=== PATIENT | female | born 1975 | race Caucasian/White ===

== ENCOUNTER 2020-06-13 13:48 | Emergency (ER) | payer BC, SELFPAY ==
--- NOTE | ~2020-06-13 | XR_ITS ---
EXAMINATION: XR foot RT min 3V EXAM DATE: 06/13/2020 14:45 INDICATION: Heel pain/Medial Foot Pain, runner, symptoms one month. No known injury. TECHNIQUE: Right foot dorsoplantar, lateral and oblique projections obtained and reviewed. There is no prior study for comparison. FINDINGS: Right metatarsal bones unremarkable. No periosteal reaction or band of sclerosis to sugges t subacute stress fracture. There are no acute fractures or dislocations identified. There is no subcutaneous gas. The soft tissue is unremarkable. There are no radiopaque foreign bodies. IMPRESSION: 1. Unremarkable right foot exam. Reviewed, dictated and finalized at location A.
[2020-06-13 14:15] VITALS: BP 113/80; PULSE 62; RESP 20; TEMP 37.1; O2SAT 98
--- NOTE | 2020-06-13 14:40 | ED.LOWEXIN ---
HPI - Extremity Injury (Lower) General Chief Complaint: Extremity Injury, Lower Stated Complaint: pain in right foot Time Seen by Provider: 06/13/20 14:55 Source: patient Mode of arrival: ambulatory Limitations: no limitations History of Present Illness HPI Narrative: 45-year-old woman comes in today complaining of right heel pain that has been present off and on for months. For the last month the pain has been constant and keeping her up at nighttime. She states that pain is worse 1st thing in the morning and that when she gets up after sitting she experiences significant pain. Denies any numbness or tingling in her toes but states that sometimes her heel feels numb. She has had no discrete injury. She runs approximately 3 miles per day. MD complaint: foot injury Onset (ago): month(s) (1) Injury: Right: foot Severity: moderate Relieving factors: rest Exacerbating factors: weight bearing and palpation Context: running Associated symptoms: numbness and able to partially bear weight Related Data Home Medications Medication Instructions Recorded Confirmed escitalopram oxalate 15 mg PO DAILY 06/13/20 06/13/20 Allergies Allergy/AdvReac Type Severity Reaction Status Date / Time No Known Allergies Allergy Verified 03/18/19 13:06 Review of Systems Musculoskeletal: Musculoskeletal: Denies arthralgias, Denies joint swelling and Denies muscle cramps Integumentary/Breasts: Skin/Breast: Denies pruritus, Denies rash and Denies skin ulcer Neurologic: Denies focal weakness and Reports numbness Hematologic/Lymphatic: Hematologic/Lymphatic: Denies easy bleeding and Denies easy bruising PMFSH Social History Social History Smoking status: Smoker, status unknown Alcohol intake: current Gender identity (if verbalized by the patient): Female Exam Const: General: healthy appearing and no acute distress Orientation/consciousness: patient oriented x3 Limitations: no limitations Eyes: Conjunctivae: conjunctivae normal Pupils: Equal, round and reactive pupils present EOM: EOMs intact bilaterally Skin: General skin exam: normal color, no jaundice and no pallor Rashes: no rashes Wounds: no wounds Neuro: General: moves all extremities and no focal motor deficits Other: Antalgic gait Extrem: General: normal to inspection and no clubbing, cyanosis or edema Other: Tenderness palpation of the anterior portion of the plantar calcaneus. There is no swelling or masses and the overlying skin has no erythema or induration distal neurovascular exam is intact and she has normal range of motion. Psych: Appearance: grossly normal and well kempt Mental Status: mental status grossly normal Affect: normal affect Attitude: cooperative Thought content: Yes Normal thought content present Course Vital Signs Vital signs: Vital Signs Temperature 37.1 C 06/13/20 14:15 Pulse Rate 62 06/13/20 14:15 Respiratory Rate 20 06/13/20 14:15 Blood Pressure 113/80 06/13/20 14:15 Pulse Oximetry 98 06/13/20 14:15 Temperature 37.1 C 06/13/20 14:15 Pulse Rate 62 06/13/20 14:15 Respiratory Rate 20 06/13/20 14:15 Blood Pressure 113/80 06/13/20 14:15 Pulse Oximetry 98 06/13/20 14:15 Discharge Plan Discharge Clinical Impression: Heel pain Qualifiers: Laterality: right Qualified Code(s): M79.671 - Pain in right foot Patient Disposition: Home, Self-Care Condition: Stable Instructions: Plantar Fasciitis (ED) Additional Instructions: Ice after walking. Continue ibuprofen. Follow-up with your doctor. See attached sheets and exercises. Prescriptions: New hydrocodone-acetaminophen 5-325 mg tablet 0.5 - 1 tablet PO Q6H PRN (Reason: pain) Qty: 15 RF: 0 No Action escitalopram oxalate 10 mg tablet 15 mg PO DAILY RF: 0 Follow-up/Referrals: Josh,Jhony Beltran MD [Primary Care Provider] - Time of Disposition
[2020-06-13 15:28] VITALS: BP 102/68; PULSE 68; RESP 20; TEMP 36.7; O2SAT 98
== END 2020-06-13 15:28 | disposition home or self-care (01) ==
PROVIDERS: Emergency Provider Emergency Medicine; PCP Internal Medicine
DX: M79.671 Pain in right foot (principal)
CPT/HCPCS: 73630; 99283

== ENCOUNTER 2021-09-06 10:36 | Outpatient (CLI) | payer BC, SELFPAY ==
--- NOTE | ~2021-09-06 | MR_ITS ---
EXAMINATION: MR brain/brain stem wo/w con DATE: 09/06/2021 11:21 INDICATION: Paresthesias of skin TECHNIQUE: Magnetic resonance imaging (MRI) of the brain and brainstem was performed without and with 11 mL Multihance intravenous contrast. Sequences included sagittal and axial T1-weighted SE, axial d iffusion-weighted FS SE, axial T2*-weighted GRE, axial 3D SWAN, axial T2-weighted FLAIR, and axial T2 -weighted FSE. Postcontrast axial and coronal T1-weighted SE was obtained. Apparent diffusion coeffic ient (ADC) maps were created. COMPARISON: 04/24/2011 FINDINGS: There are no areas of restricted diffusion to suggest acute infarction. No intracranial hemorrhage or abnormal intracranial mass lesion. There are no intraparenchymal signal abnormalities seen on the ot her pulse sequences. The ventricles are symmetric and normal in size. There are no abnormal extra-axi al fluid collections. Flow voids are seen in the cerebral arteries on the T2-weighted sequences consi stent with their expected patency. Mild mucoperiosteal thickening the bilateral ethmoid sinuses. Visu alized orbits and soft tissues are unremarkable. There are no areas of abnormal enhancement on the po st contrast images. IMPRESSION: 1. Normal brain Reviewed, dictated and finalized at location A. IMPRESSION: 1. Normal brain
--- NOTE | ~2021-09-06 | US_ITS ---
US thyroid INDICATION: Lucita's thyroiditis TECHNIQUE: Real-time sonographic images of the thyroid gland were obtained. COMPARISON: No prior studies for comparison. FINDINGS: The right thyroid lobe measures 4.6 x 1.2 x 1.4 cm. The left thyroid lobe measures 3.7 x 1 x 1.3 cm. There is normal echotexture and echogenicity throughout the thyroid gland. In the right lo be there is a 3 mm hypoechoic mass, likely benign. No other masses are identified. Normal vascular fl ow is present. IMPRESSION: 1. Small 3 mm hypoechoic right thyroid mass, likely benign, too small to adequately characterize. Reviewed, dictated and finalized at location A. IMPRESSION: 1. Small 3 mm hypoechoic right thyroid mass, likely benign, too small to adequ ately characterize.
[2021-09-06 11:03] LABS: Estimated Glomerular Filt Rate > 60
== END 2021-09-06 10:37 ==
PROVIDERS: PCP Emergency Medicine; Visit Provider Emergency Medicine
DX: E06.3 Autoimmune thyroiditis (principal); R20.2 Paresthesia of skin
CPT/HCPCS: 70553; 76536; A9577

== ENCOUNTER 2021-10-30 08:30 | Outpatient (CLI) | payer BC, SELFPAY ==
--- NOTE | 2021-10-30 11:00 | NEURO_ITS ---
Impression: # Complains of numbness all over upper and lower extremities. History of C-spine surgery 5 years ago. # Normal motor and sensory nerve conduction study,in upper and lower extremities.. # Needle/EMG exam neurogenic in upper extremities; could be related to previous damage at the cervical spinal cord level .though no active fibrillations noted. # Clinical correlation recommended. Nerve Conduction Studies Anti Sensory Summary Table Stim Site NR Peak (ms) P-T Amp (?V) Site1 Site2 Delta-P (ms) Dist (cm) Akhil (m/s) Left Median Anti Sensory (2-3nd Digit) Wrist 3.0 71.2 Wrist 2-3nd Digit 3.0 14.0 47 Wrist 2.9 85.6 Wrist 2-3nd Digit 3.0 14.0 47 Right Median Anti Sensory (2-3nd Digit) Wrist 3.2 76.2 Wrist 2-3nd Digit 3.2 14.0 44 Wrist 3.1 68.9 Wrist 2-3nd Digit 3.2 14.0 44 Left Radial Anti Sensory (Base 1st Digit) Wrist 1.7 39.1 Wrist Base 1st Digit 1.7 0.0 Right Radial Anti Sensory (Base 1st Digit) Wrist 2.2 17.2 Wrist Base 1st Digit 2.2 0.0 Left Sup Fibular Anti Sensory (Ant Lat Mall) 14 cm 3.5 22.9 14 cm Ant Lat Mall 3.5 16.0 46 Right Sup Fibular Anti Sensory (Ant Lat Mall) 14 cm 3.3 37.5 14 cm Ant Lat Mall 3.3 16.0 48 Left Sural Anti Sensory (Lat Mall) Calf 3.8 18.6 Calf Lat Mall 3.8 16.0 42 Right Sural Anti Sensory (Lat Mall) Calf 3.8 14.5 Calf Lat Mall 3.8 16.0 42 Left Ulnar Anti Sensory (5th Digit) Wrist 2.4 70.7 Wrist 5th Digit 2.4 14.0 58 Right Ulnar Anti Sensory (5th Digit) Wrist 2.3 90.7 Wrist 5th Digit 2.3 14.0 61 Motor Summary Table Stim Site NR Onset (ms) O-P Amp (mV) Site1 Site2 Delta-0 (ms) Dist (cm) Akhil (m/s) Left Median Motor (Abd Poll Brev) Wrist 3.3 4.0 Elbow Wrist 4.6 26.0 57 Elbow 7.9 4.9 Right Median Motor (Abd Poll Brev) Wrist 3.0 9.0 Elbow Wrist 4.4 26.0 59 Elbow 7.4 4.1 Left Peroneal Motor (Vastus Med) Ankle 4.3 1.9 Popit Ankle 8.2 40.0 49 Popit 12.5 1.2 Right Peroneal Motor (Vastus Med) Ankle 4.8 1.7 Popit Ankle 7.6 36.0 47 Popit 12.4 1.5 Left Tibial Motor (Abd Guadalupe Brev) Ankle 4.8 6.6 Knee Ankle 8.4 40.0 48 Knee 13.2 5.0 Right Tibial Motor (Abd Guadalupe Brev) Ankle 4.8 4.2 Knee Ankle 9.0 40.0 44 Knee 13.8 1.4 Left Ulnar Motor (Abd Dig Minimi) Wrist 2.3 5.7 A Elbow Wrist 4.4 27.0 61 A Elbow 6.7 4.3 Right Ulnar Motor (Abd Dig Minimi) Wrist 2.1 6.2 A Elbow Wrist 4.8 29.0 60 A Elbow 6.9 5.7 F Wave Studies NR F-Lat (ms) L-R F-Lat (ms) Left Median (Mrkrs) (Abd Poll Brev) 27.19 0.70 Right Median (Mrkrs) (Abd Poll Brev) 26.49 0.70 Left Peroneal (Mrkrs) (EDB) 49.61 0.70 Right Peroneal (Mrkrs) (EDB) 50.31 0.70 Left Tibial (Mrkrs) (Abd Hallucis) 50.39 0.04 Right Tibial (Mrkrs) (Abd Hallucis) 50.43 0.04 Left Ulnar (Mrkrs) (Abd Dig Min) 26.72 1.04 Right Ulnar (Mrkrs) (Abd Dig Min) 27.76 1.04 EMG Side Muscle Nerve Root Ins Act Fibs Amp Dur Recrt Comment Right 1stDorInt Ulnar C8-T1 Nml Nml Nml Nml Nml Right Ext Indicis Radial (Post Int) C7-8 Nml Nml Nml Nml Nml Right Ext Digitorum Radial (Post Int) C7-8 Nml Nml Nml Nml Nml Right BrachioRad Radial C5-6 Nml Nml Nml Nml Nml
== END 2021-10-30 08:31 | disposition home or self-care (01) ==
LOC: ANHNEURO 08:34
PROVIDERS: PCP Emergency Medicine; Visit Provider Emergency Medicine
DX: M62.81 Muscle weakness (generalized) (principal); R20.2 Paresthesia of skin
CPT/HCPCS: 95886; 95911; 95913

== ENCOUNTER → 2021-12-11 13:27 | Outpatient (CLI) | payer BC, SELFPAY ==
--- NOTE | ~2021-12-11 | MM_ITS ---
EXAMINATION: MM screening ulises BI w monet HISTORY: Screening mammogram TECHNIQUE: Craniocaudal and mediolateral oblique 3-D tomosynthesis images were obtained and synthetic 2-D images were generated. CAD analysis was submitted and interpreted. COMPARISON: 12/20/2009 BREAST PARENCHYMAL COMPOSITION: There are scattered areas of fibroglandular density. FINDINGS: No suspicious mass, calcification, or architectural distortion are identified in either jacob ast to suggest malignancy. There has been no suspicious interval change. IMPRESSION: 1. No mammographic evidence of malignancy. 2. Recommend routine screening mammography in one year. BI-RADS Category 1: Negative Reviewed, dictated and finalized at location A.
== END ==
PROVIDERS: PCP Emergency Medicine; Visit Provider Emergency Medicine
DX: Z12.31 Encounter for screening mammogram for malignant neoplasm of breast (principal)
CPT/HCPCS: 77063; 77067

== ENCOUNTER 2022-01-18 00:19 | Day surgery (SDC) | payer BC, SELFPAY ==
[2022-01-14 15:42] VITALS: BMI 21.2
[2022-01-18 09:22] VITALS: BP 108/68; PULSE 100; RESP 19; TEMP 36.4; O2SAT 100
[2022-01-18] MEDS: LACTATED RINGERS 1,000 ML 150 ML IV CONT (09:35)
--- NOTE | 2022-01-18 09:38 | P.PNAN_ITS ---
Anes - Initial Pre Proc Eval Procedure: Operation Date: 01/18/22 10:30 Proposed Procedures p Esophagogastroduodenoscopy & Colonoscopy - Samuel Foy MD Date/Time: 01/18/22 09:38 Surgeon: Samuel Foy MD Pre Op Diagnosis: early satiety: IBSD, weight loss Patient Data Age: 46 Gender: F Height: 1.6 m Weight: 53 kg Last Vital Signs Temp 36.4 C 01/18/22 09:22 Pulse 100 01/18/22 09:22 Resp 19 01/18/22 09:22 BP 108/68 01/18/22 09:22 Pulse Ox 100 01/18/22 09:22 O2 Del Method Room Air 01/18/22 09:22 Allergies Allergy/AdvReac Type Severity Reaction Status Date / Time No Known Allergies Allergy Verified 01/18/22 09:21 Home Medications Medication Instructions Recorded Confirmed Type cholecalciferol (vitamin D3) 25 25 mcg PO DAILY 01/14/22 01/14/22 History mcg (1,000 unit) tablet (Vitamin D3) cyanocobalamin (vitamin B-12) 500 500 mcg PO DAILY 01/14/22 01/14/22 History mcg tablet (Vitamin B-12) duloxetine 60 mg capsule,delayed 60 mg PO DAILY 01/14/22 01/14/22 History release hydroxychloroquine 200 mg tablet 200 mg PO BID 01/14/22 01/14/22 History quetiapine 25 mg tablet 25 mg PO HS 01/14/22 01/14/22 History Patient hx anesthesia problems: none Family hx anesthesia problems: none Results Review: All pre-operative results and documents have been reviewed as part of the pre- operative evaluation. FOR[facility] Surgical History Surgical History (Updated 01/18/22 @ 09:39 by Chad Licona MD) S/P cervical spinal fusion Social History Social History Smoking status: Smoker, status unknown Tobacco type: e-cigarettes/vaping Additional smoking assessment comments: 3MG NICOTINE MOSTLY IN THE EVENINGS Alcohol intake: former Substance use: never Substance use type: does not use Living arrangements: with family Gender identity (if verbalized by the patient): Female Spiritual care concerns: No Anes - Eval Final PreProcedure Day of Procedure 01/18/22 09:38 Patient weight: normal Heart: regular rate and rhythm Lungs: clear to auscultation Airway: Mallampati scale class 1 Neurological: alert and oriented Last oral intake: >/= 8 hours ASA classification: II Emergent: no Anesthetic plan: proceed Anesthesia type and monitoring: general GIVS and standard monitoring Results Review: All pre-operative results and documents have been reviewed as part of the pre- operative evaluation. Informed Consent: The patient's anesthetic plan and its attendant risks and benefits were discussed with the patient/family/POA. Questions were solicited and answers provided to the satisfaction of the patient/family/POA.
--- NOTE | 2022-01-18 09:41 | PM.HPGS ---
History of Present Illness History of Present Illness Consent: Risks, benefits, and alternatives have been discussed and questions answered. Patient agrees to proceed with procedure. Chief complaint: early satiety: IBSD, weight loss Narrative: Nikki Pineda is a 46 year old female with weight loss, early satiety, also she has intermittent loose stools with urgency and few times had accidents- had colonoscopy about 7 years ago, recently diagnosed with Sjogren and Lucita. Review of Systems Constitutional: Constitutional: Denies headache(s) and Denies weakness Eyes: Eyes: Denies blurry vision ENT: Reports Normal hearing present, Denies headache(s) and Denies neck pain Cardiovascular: Cardiovascular: Denies chest pain and Denies dyspnea Respiratory: Respiratory: Denies dyspnea Gastrointestinal: Gastrointestinal: Reports no additional gastrointestinal complaints Genitourinary: Genitourinary: Denies dysuria Musculoskeletal: Musculoskeletal: Denies neck pain Integumentary/Breasts: Skin/Breast: Denies dry skin Neurologic: Reports Normal hearing present, Denies headache(s) and Denies weakness Psychiatric: Psychiatric: Denies anxiety Endocrine: Endocrine: Denies change in body appearance Hematologic/Lymphatic: Hematologic/Lymphatic: Denies easy bleeding Allergic/Immunologic: Allergic/Immunologic: Denies urticaria PMFSH Past Medical History Medical History (Updated 01/18/22 @ 09:42 by Samuel Foy MD) Early satiety Loose stools Weight loss Surgical History Surgical History (Updated 01/18/22 @ 09:39 by Chad Licona MD) S/P cervical spinal fusion Social History Social History Smoking status: Smoker, status unknown Tobacco type: e-cigarettes/vaping Additional smoking assessment comments: 3MG NICOTINE MOSTLY IN THE EVENINGS Alcohol intake: former Substance use: never Substance use type: does not use Living arrangements: with family Gender identity (if verbalized by the patient): Female Spiritual care concerns: No Meds Home Medications and Allergies Home Medications Medication Instructions Recorded Confirmed Type cholecalciferol (vitamin D3) 25 25 mcg PO DAILY 01/14/22 01/14/22 History mcg (1,000 unit) tablet (Vitamin D3) cyanocobalamin (vitamin B-12) 500 500 mcg PO DAILY 01/14/22 01/14/22 History mcg tablet (Vitamin B-12) duloxetine 60 mg capsule,delayed 60 mg PO DAILY 01/14/22 01/14/22 History release hydroxychloroquine 200 mg tablet 200 mg PO BID 01/14/22 01/14/22 History quetiapine 25 mg tablet 25 mg PO HS 01/14/22 01/14/22 History Allergies Allergy/AdvReac Type Severity Reaction Status Date / Time No Known Allergies Allergy Verified 01/18/22 09:21 Vital Signs Vital Signs - 24 hr 01/18/22 09:22 Temperature 97.6 F Pulse Rate 100 Respiratory Rate 19 Blood Pressure 108/68 Pulse Oximetry 100 Oxygen Delivery Room Air Exam Const: General: comfortable and no acute distress HENMT: Face/Nose/Sinus: Normal nares present Eyes: General: appearance normal, both eyes and all related structures Neck: Neck: no JVD Resp: Auscultation: clear to auscultation bilaterally Cardio: Rate: regular rate Rhythm: regular rhythm GI: Inspection: non-distended GI Palp: Yes Soft to palpation Skin: General skin exam: normal color Neuro: General: gait normal Speech: normal speech Extrem: General: normal to inspection Psych: Mental Status: mental status grossly normal Assessment and Plan Assessment and plan (1) Weight loss: Code(s): R63.4 - Abnormal weight loss Status: Acute Assessment and Plan: egd and colonoscopy (2) Early satiety: Code(s): R68.81 - Early satiety Status: Acute Assessment and Plan: check for celiac (3) Loose stools: Code(s): R19.5 - Other fecal abnormalities Status: Acute Assessment
--- NOTE | 2022-01-18 09:55 | SUR.OPER ---
EGD: [id number] COLON: [id number]
[2022-01-18 10:05] VITALS: BP 82/60; PULSE 69; RESP 16; O2SAT 100
[2022-01-18 10:15] VITALS: BP 95/62; PULSE 70; RESP 16; O2SAT 100
[2022-01-18 10:24] VITALS: BP 93/76; PULSE 71; RESP 14; O2SAT 99
== END 2022-01-18 10:43 | disposition home or self-care (01) ==
PROVIDERS: PCP Emergency Medicine; Visit Provider Internal Medicine Gastroenterology
PROC: 0DJ08ZZ Inspection of Upper Intestinal Tract, Via Natural or Artificial Opening Endoscopic (ICD-10-PCS; CPT 43235; principal; 2022-01-18 10:30)
DX: R19.7 Diarrhea, unspecified (principal); R63.4 Abnormal weight loss; K64.8 Other hemorrhoids; R68.81 Early satiety; M35.00 Sjogren syndrome, unspecified; E06.3 Autoimmune thyroiditis; F17.290 Nicotine dependence, other tobacco product, uncomplicated; Z98.1 Arthrodesis status
CPT/HCPCS: 45380; 43239; 88305; J2704; J7120

== ENCOUNTER 2023-08-22 11:24 | Outpatient (CLI) | payer OTHER, SELFPAY ==
--- NOTE | ~2023-08-22 | XR_ITS ---
Lumbosacral Spine: AP and lateral views Clinical History: Pain Findings: The normal lordotic curve is maintained. The vertebral bodies and posterior elements are i ntact. The intervertebral disc spaces are preserved. There is moderate to advanced facet arthropathy from L3 through S1. The sacroiliac joints are normally outlined. Impression: Moderate to advanced facet arthropathy from L3 through S1. Reviewed, dictated and finalized at location . Impression: Moderate to advanced facet arthropathy from L3 through S1.
--- NOTE | ~2023-08-22 | US_ITS ---
Thyroid ultrasound. Clinical History: Thyroid nodule COMPARISON: 09/06/2021 Findings: Real-time sonography of the thyroid gland was performed. The right lobe measures 4.7 x 1.4 x 1.2 cm. The left lobe measures 3.9 x 1.2 x 1.4 cm. The isthmus is 4 mm in AP diameter. There is a 4 mm hypoechoic solid nodule at the right lower pole. There is an additional 4 mm hypoecho ic nodule at the right upper pole. Impression: 4 mm hypoechoic right lower pole nodule is stable from prior exam. Additional 4 mm right upper pole n odule, not clearly seen on prior exam. Given small size however, no definitive follow-up/intervention required.. Reviewed, dictated and finalized at location M. Impression: 4 mm hypoechoic right lower pole nodule is stable from prior exam. Additional 4 mm right upper pole nodule, not clearly seen on prior exam. Given small size h owever, no definitive follow-up/intervention required..
--- NOTE | ~2023-08-22 | XR_ITS ---
AP view of the pelvis and AP and lateral views of the bilateral hips Clinical history: Pain Findings: No acute fracture or dislocation is seen. Osseous alignment is anatomic. Bilateral hip and SI joint spaces are preserved. Soft tissues are unremarkable. Impression: No significant abnormality is seen. Reviewed, dictated and finalized at [facility]. Impression: No significant abnormality is seen.
== END 2023-08-22 11:25 ==
PROVIDERS: PCP Emergency Medicine; Visit Provider Emergency Medicine
DX: M47.897 Other spondylosis, lumbosacral region (principal); E04.1 Nontoxic single thyroid nodule; M25.551 Pain in right hip
CPT/HCPCS: 72100; 73521; 76536

== ENCOUNTER 2023-12-23 15:50 | Outpatient (CLI) | payer OTHER, SELFPAY ==
--- NOTE | ~2023-12-23 | MM_ITS ---
EXAMINATION: MM screening [facility] BI w monet HISTORY: Screening TECHNIQUE: Craniocaudal and mediolateral oblique 3-D tomosynthesis images were obtained and synthetic 2-D images were generated. CAD analysis was submitted and interpreted. COMPARISON: 12/11/2021 BREAST PARENCHYMAL COMPOSITION: Not dense: There are scattered areas of fibroglandular density. FINDINGS: There is a developing mass in the upper outer quadrant of the right breast, posterior third . The left breast is stable. Low density mass in the upper outer quadrant of the left breast is stabl e or decreased in size compared with prior examination. IMPRESSION: 1. Developing right breast mass in the upper outer quadrant, posterior third. 2. Additional mammographic views and possible breast ultrasound are recommended. BI-RADS Category 0: Incomplete: Needs additional imaging evaluation. Reviewed, dictated and finalized at location B. IMPRESSION: 1. Developing right breast mass in the upper outer quadrant, posterior third. 2. Additional mammographic views and possible breast ultrasound are recommended . BI-RADS Category 0: Incomplete: Needs additional imaging evaluation.
== END 2023-12-23 15:51 | disposition home or self-care (01) ==
PROVIDERS: PCP Emergency Medicine; Visit Provider Emergency Medicine
DX: Z12.31 Encounter for screening mammogram for malignant neoplasm of breast (principal); R92.8 Other abnormal and inconclusive findings on diagnostic imaging of breast
CPT/HCPCS: 77063; 77067

== ENCOUNTER 2024-01-19 08:55 | Outpatient (CLI) | payer OTHER, SELFPAY ==
--- NOTE | ~2024-01-19 | MMUS_ITS ---
EXAMINATION: MM diagnostic ulises RT w monet, US breast RT limited HISTORY: Developing right breast mass TECHNIQUE: Additional 3-D tomosynthesis images of the right breast were performed and synthetic 2-D i mages were generated. CAD analysis was submitted and interpreted. High resolution limited right breas t ultrasound was performed. COMPARISON: 12/23/2023, 12/11/2021 BREAST PARENCHYMAL COMPOSITION:Not Dense. There are scattered areas of fibroglandular density. FINDINGS: MAMMOGRAPHIC FINDINGS: Spot compression views demonstrate a suspected persistent low-density 7 mm mass at the upper, outer r ight breast. ULTRASOUND: At the 10:00 position right breast, 7 cm from nipple, there is an 8 x 7 x 6 mm hypoechoic mass, with posterior through transmission, wider than tall, mildly lobulated. There is an additional adjacent 9 x 2 x 6 mm wider than tall probable cyst or hypoechoic mass. IMPRESSION: 2 subcentimeter, adjacent probable benign lesions at the 10:00 position right breast, as detailed ab ove. Six-month follow-up ultrasound recommended to reassess/assure stability. BI-RADS category 3, probably benign findings. Reviewed, dictated and finalized at location M. [employer] IMPRESSION: 2 subcentimeter, adjacent probable benign lesions at the 10:00 position right breast, as detailed above. Six-month follow-up ultrasound recommended to reasse ss/assure stability. BI-RADS category 3, probably benign findings.
== END 2024-01-19 08:56 | disposition home or self-care (01) ==
LOC: MICIMG 08:57
PROVIDERS: PCP Emergency Medicine; Visit Provider Emergency Medicine
DX: N63.10 Unspecified lump in the right breast, unspecified quadrant (principal); R92.8 Other abnormal and inconclusive findings on diagnostic imaging of breast
CPT/HCPCS: 76642; 77061; 77065; G0279

== ENCOUNTER 2024-06-22 08:19 | Outpatient (CLI) | payer OTHER, SELFPAY ==
--- NOTE | ~2024-06-22 | MMUS_ITS ---
EXAMINATION: MM diagnostic ulises RT w monet, US breast RT limited HISTORY: Right breast lump TECHNIQUE: Additional 3-D tomosynthesis images of the right breast were performed and synthetic 2-D i mages were generated. CAD analysis was submitted and interpreted. High resolution Limited right breas t ultrasound was performed. COMPARISON: Comparison to multiple prior studies sequentially, with oldest reviewed study dated 06/2021. BREAST PARENCHYMAL COMPOSITION: Not dense: There are scattered areas of fibroglandular density. FINDINGS: MAMMOGRAPHIC FINDINGS: There are no suspicious masses, calcifications or architectural distortion in the right breast to sug gest malignancy. ULTRASOUND: Limited right breast ultrasound: At 10:00, 7 cm from the nipple there is an oval hypoechoic parallel orientation mass with circumscribed margins, no internal vascularity or posterior features measuring 6 mm. There is altered morphology of the mass compared with prior examination, likely benign. Also at 10:00, 7 cm from the nipple there is a 3 mm cyst. IMPRESSION: 1. Probable benign right breast masses. 2. Recommend 6 month follow-up bilateral mammogram and Limited right breast ultrasound. BI-RADS category 3, probably benign findings. Reviewed, dictated and finalized at location B. IMPRESSION: 1. Probable benign right breast masses. 2. Recommend 6 month follow-up bilateral mammogram and Limited right breast ult rasound. BI-RADS category 3, probably benign findings.
== END 2024-06-22 08:20 | disposition home or self-care (01) ==
LOC: MICIMG 08:19
PROVIDERS: PCP Emergency Medicine; Visit Provider Emergency Medicine
DX: N63.11 Unspecified lump in the right breast, upper outer quadrant (principal)
CPT/HCPCS: 76642; 77061; 77065; G0279

== ENCOUNTER 2024-09-28 11:22 | Outpatient (CLI) | payer OTHER, SELFPAY ==
--- NOTE | ~2024-09-28 | XR_ITS ---
EXAM/PROCEDURE: XR abdomen/kub 1V - 09/28/2024 11:31 CDT HISTORY: 49 years old Female with R19.7 - Diarrhea, unspecified, PT STATES DIARRHEA X 1YR COMPARISON: None available. TECHNIQUE: AP view(s) of the abdomen. FINDINGS: The bowel gas pattern is normal. There is no evidence for obstruction. Moderate stool burden. No free intraperitoneal air is identified on this supine radiograph. The visualized soft tissue shadows are unremarkable. No gross bony abnormalities are seen. Visualized portions of lung bases are clear. IMPRESSION: Moderate stool burden. Reviewed, dictated and finalized at location A. IMPRESSION: Moderate stool burden.
--- OUTSIDE RECORDS SUMMARY | 2024-09-28 11:27 | XMS_ITS | Continuity of Care Document ---
Author Organization [facility] Address [address] [place] [address] Phone Care Team Providers Care Net Architect Name Role Phone Hesham Lorenzana MD Unavailable Unavailable Allergies, Adverse Reactions, Alerts Substance Reaction Status Criticality No Known Allergies Active No Inform ation Medications Medication Instructions Dosage Effective Dates (start - stop) Status Comments Synthroid 50 mcg tablet take 1 tablet by oral route every day 50 MCG - Active Crestor 10 mg tablet take 1 tablet by or al route every day 10 MG - Active Cymbalta 60 mg capsule,delayed release take 1 capsule by oral route every day - Active Procedures Procedure Date OFFICE/OUTPATIENT VISIT, EST PREV VISIT, EST, AGE 40-64 OFFICE/OUTPATIENT VISIT, EST OFFICE/OUTPATIENT VISIT, EST OFFICE/OUTPATIENT VISIT, EST PREV VISIT, EST, AGE 40-64 OFFICE/OUTPATIENT VISIT, EST OFFICE/OUTPATIENT VISIT, EST OFFICE/OUTPATIENT VISIT, EST OFFICE/OUTPATIENT VISIT, EST OFFICE/OUTPATIENT VISIT, EST OFFICE/OUTPATIENT VISIT, EST OFFICE/OUTPATIENT VISIT, EST PREV VISIT, EST, AGE 40-64 OFFICE/OUTPATIENT VISIT, EST OFFICE/OUTPATIENT VISIT, EST OFFICE/OUTPATIENT VISIT, EST OFFICE/OUTPATIENT VISIT, EST PREV VISIT, NEW, AGE 40-64 OFFICE/OUTPATIENT VISIT, [facility] Advance Directives Directive Yes / No Effective Date File Name No Information Encounters Encounter Description Practice Location Reason(s) For Visit Diagnoses Date Provider Providers Copied on Encounter OFFICE/OUTPA TIENT VISIT, [facility], [address], [place], [place], [address], [place] tel:[phone] [facility] HLP (chief complaint) hashimoto1 (chief complaint) glucose1 (chief complaint) vitami D (chief complaint) Amy's thyroiditisHypergly cemiaMixed hyperlipidemiaOsteo penia 5 Salomón Skelton [address], [place], [place], [address] , [place]. tel:[phone] PREV VISIT, EST, AGE 40-64 [facility], [address], [place], [place], [address], [place] tel:[phone] [facility] physical (chief complaint) Encounter for general adult medical exam w abnormal findingsMixed hyperlipidemiaHashi daryl's thyroiditisGenerali zed Anxiety DisorderSjogren syndromeAbnormal weight lossIrritable bowel syndrome with diarrhea 5 Salomón Skelton [address], [place], [place], [address] , [place]. tel:[phone] [facility], [address], [place], [place], [address], [place] tel:[phone] [facility] No Information 4 Salomón Skelton [address], [place], [place], [address] , [place]. tel:[phone] OFFICE/OUTPA TIENT VISIT, EST [facility], [address] [place], [address], [place] tel:[phone] [facility] stomach pain1 (chief complaint) brain fog1 (chief complaint) breast mass1 (chief complaint) GastroenteritisLump in the right breastOther sign involving cognitive awareness 4 Salomón Skelton [address], [place], [place], [address] , [place]. tel:[phone] OFFICE/OUTPA TIENT VISIT, EST [facility], [address], [place], [place], [address], [place] tel:[phone] [facility] Medicine breast nodule1 (chief complaint) shingle1 (chief complaint) HLP (chief complaint) hashimoto1 (chief complaint) back pain1 (chief complaint) Amy's thyroiditisZoster without complicationsLump in the right breastMixed hyperlipidemiaLumba go 4 Lorenzana Hesham. [address], [place], [place], [address] , [place]. tel:[phone] PREV VISIT, EST, AGE 40-64 [facility], [address], [place], [place], [address], [place] tel:[phone] [facility] Medicine physical (chief complaint) Encounter for general adult medical exam w abnormal findingsThyroid noduleMixed hyperlipidemiaGener alized Anxiety DisorderHashimoto's thyroiditisPain in right hip 4 Lorenzana Hesham. [address], [place], [place], [address] , [place]. tel:[phone] OFFICE/OUTPA TIENT VISIT, EST [facility], [address], [place], [place], [address], [place] tel:[phone] [facility] Medicine flushing1 (chief complaint) back pain1 (chief complaint) FlushingMuscle spasm of back Young-0 4 Lorenzana Hesham. [address], [place], [place], [address] , [place]. tel:[phone] OFFICE/OUTPA TIENT VISIT, EST [facility], [address], [place], [place], [address], [place] tel:[phone] [facility] Medicine UTi1 (chief complaint) flush (chief complaint) Acute cystitis without hematuriaFlushing 3 Lorenzana Hesham. [address], [place], [place], [address] , [place]. tel:[phone] OFFICE/OUTPA TIENT VISIT, EST [facility], [address], [place], [place], [address], [place] tel:[phone] [facility] anxiety1 (chief complaint) HLP (chief complaint) vasomotor1 (chief complaint) Inconclusive mammogramHashimoto' s thyroiditisMixed hyperlipidemiaHyper glycemiaFlushingGen eralized Anxiety Disorder 3 Salomón Dahl. [address], [place], [place], [address] , [place]. tel:[phone] OFFICE/OUTPA TIENT VISIT, [facility], [address], [place], [place], [address], [place] tel:[phone] [facility] vasomotor1 (chief complaint) HLP (chief complaint) hashimoto1 (chief complaint) sjogren1 (chief complaint) FlushingDepressionS jogren syndrome with myopathyHashimoto's thyroiditisMixed hyperlipidemia 3 Salom[address] Dahl[address], [place], [place], [address] , [place]. tel:[phone] OFFICE/OUTPA TIENT VISIT, [facility], [address] [place], [address], [place] tel:[phone] [facility] appetite (chief complaint) tremor1 (chief complaint) weight loss1 (chief complaint) insomnia1 (chief complaint) Loss of appetitePrimary insomniaTremorAbnor mal weight loss 3 Salomón Dahl[address], [place], [place], [address] , [place]. tel:[phone] OFFICE/OUTPA TIENT VISIT, EST [facility], [address], [place], [place], [address], [place] tel:[phone] [facility] insomnia1 (chief complaint) loss of appetite1 (chief complaint) tremor1 (chief complaint) weight loss1 (chief complaint) Primary insomniaLoss of appetiteTremorAbnor mal weight loss 3 Salomón Dahl[address], [place], [place], [address] , [place]. tel:[phone] PREV VISIT, EST, AGE 40-64 [facility], [address], [place], [place], [address], [place] tel:[phone] [facility] physical (chief complaint) Encounter for general adult medical examination without abnormal findings 3 Salomón Dahl[address], [place], [place], [address] , [place]. tel:[phone] OFFICE/OUTPA TIENT VISIT, [facility], [address], [place], [place], [address], [place] tel:[phone] [facility] insomnia1 (chief complaint) anxiety1 (chief complaint) weight loss1 (chief complaint) Abnormal weight lossPrimary insomniaMixed irritable bowel syndromeSjogren syndrome with myopathyDepressionE ncounter for oth screening for malignant neoplasm of breast 2 Salom[address] Dahl[address], [place], [place], [address] , [place]. tel:[phone] OFFICE/OUTPA TIENT VISIT, EST [facility], [address], [place], [place], [address], [place] tel:[phone] [facility] weight loss1 (chief complaint) anxiety1 (chief complaint) sjogren1 (chief complaint) insomnia1 (chief complaint) Paresthesia of skinDepressionAbnor mal weight lossPrimary insomnia 2 Salom[address] Dahl[address], [place], [place], [address] , [place]. tel:[phone] OFFICE/OUTPA TIENT VISIT, EST [facility], [address], [place], [place], [address], [place] tel:[phone] [facility] anxiety1 (chief complaint) joint pain1 (chief complaint) hashimoto1 (chief complaint) fatigue1 (chief complaint) GI (chief complaint) Amy's thyroiditisSjogren syndrome with myopathyFatigueDepr essionMixed irritable bowel syndromeParesthesia of skin 2 Salomón Dahl[address], [place], [place], [address] , [place]. tel:[phone] OFFICE/OUTPA TIENT VISIT, EST [facility], [address], [place], [place], [address], [place] tel:[phone] [facility] muscle (chief complaint) fatigue1 (chief complaint) Paresthesia of skinMuscle weaknessHashimoto's thyroiditisPain in unspecified jointFatigue 2 Salom[address] Dahl[address], [place], [place], [address] , [place]. tel:[phone] PREV VISIT, NEW, AGE 40-64 [facility], [address], [place], [place], [address], [place] tel:[phone] [facility] physical (chief complaint) Encounter for general adult medical exam w abnormal findingsRashParesth esia of skinMuscle weaknessPain in unspecified jointHyperlipidemia 2 Salomón Dahl. [address], [place], [place], [address] , [place]. tel:[phone] Family History Family Member Type Diagnosis Age At Onset Father Problem of jaw cancer 50 Mother Problem Depression Mother Problem non hodgkin lymphoma 60 Sister Problem Alive and well Payers Payer name Insurance type Covered libertarian ID Racquelnel josuealfredo(s) r CI [id number] Social History Type Description Quantity Date Captured Comments Alcohol Use Details Caffeine Use Details Unknown Tobacco Use Status User of moist powdered tobacco Smoking Status Current every day smoker 2024 Sex Female Vital Signs Date / Time: Height Weight BMI Pulse Rate Blood Pressure Temperature Respiratory Rate Body Surface Area Head Circumference BMI percentile Pulse Ox Inhaled Ox 5:18 PM 63.00 in 121.00 lbs 21.4 3 kg/m eter (2) 65 /min 110/70 mm[Hg] 98.2 F 16 /min Chief Complaint And Reason For Visit From encounter dated '08/30/2024 17:17'. HLP (chief complaint). Description: Pt has persistent HLP, which is getting worse Pt denies any chest pain hashimoto1 (chief complaint). Description: Pt has Amy with low thyroid. Pt denies any dysphagia or neck pain Pt does c/o chronic fatigue glucose1 (chief complaint). Description: Pt has mildly high glucose Pt denies any polyuria, polydipsia vitami D (chief complaint). Description: Pt has low D Plan Of Treatment Date Type Action Status Referral Ordered: Samuel Foy -Allopathic & Osteopathic Physicians : Internal Medicine : Gastroenterology (related to Irritable bowel syndrome with diarrhea) ordered Referral Ordered: MAMMOGRAM, BOTH BREASTS ordered Referral Referred To: Samuel Foy [facility] [place], [place], [id number] Ordered: Referrals: Allopathic & Osteopathic Physicians : Internal Medicine : Gastroenterology. Samuel Foy. Evaluate and treat ordered Referral Ordered: Pain Medicine (related to Lumbago) ordered Referral Ordered: MAMMOGRAM, ONE BREAST ordered Referral Ordered: Referrals: Pain Medicine. Evaluate and treat ordered Referral Ordered: AP PELVIS AND BILATERAL HIPS XRAY ordered Referral Ordered: COLONOSCOPY AND BIOPSY ordered Referral Ordered: MRI BRAIN W/O & W/DYE ordered Referral Ordered: US THYROID ordered Referral Referred To: Becky Ge MD [address] [facility]
[address] [place], [place], [address] Ordered: Referrals: Becky Ge MD. Evaluate and treat ordered Referral Ordered: MOTOR NERVE CONDUCTION TEST ordered Referral Ordered: MAMMOGRAM, SCREENING ordered History Of Present Illness Encounter Date Complaint History Of Prese nt Illness HLP Pt has persisten t HLP, which is getting worse Pt denies any chest pain hashimoto1 Pt has Amy with low thyroid. Pt denies any dysphagia or neck pain Pt does c/o chronic fatigue glucose1 Pt has mildly hi gh glucose Pt denies any polyuria, polydipsia vitami D Pt has low D physical Pt needs annual physical. Pt has amy thyroid disease Pt denies any dysphagia or neck pain Pt has chronic anxiety and depression Pt doing ok with cymbalta Pt has sjogren disease. Pt sees rheumatology but she is off plaquenil due to side effects and she overall feels fine Pt c/o intermittent diarrhea after any type of food with loose stool. Pt states that sometimes she is not sure whether she has gas vs diarrhea after food Pt denies any abd pain or bloating Pt denies any GERD, nausea, vomiting .Pt also has been losing weight gain Pt states that her appetite is ok without early satiety or any postprandial pain. Pt also has HLP. Pt denies any other complaints brain fog1 Pt c/o acute bra in fog feeling since last Friday. Pt states that she can not think straight and unable to focus and concentrate. pt actually got lost last Friday on her way to her daughter's house. Pt has mild headache as well Pt denies any vision change. Pt feels hot and cold with some chills . stomach pain1 Pt ate some onio n ring last Friday and she started to have abd cramp and some loose stool since last friday Pt denies any vomiting pt has mild nausea. pt c/o diffuse abdominal pain with worsening GERD Pt had some tums which has not helped. Pt lost some appetite as well and she lost some weight during last week breast mass1 pt has right jacob ast nodule on screening mammo and she had diagnostic mammo and ultrasound done which showed benign finding. Pt denies any breast pain or palpable nodule HLP Pt has mild HLP on lab ,Pt is not on any diet hashimoto1 Pt has amy Pt denies any dysphagia or neck pain TSh ok Pt has stable thyroid nodule back pain1 Pt has low back and hip pain .X ray showed advance Lumbar arthritis. Pt denies any sciatica or any loss of bowel or bladder control or saddle area paresthesia shingle1 Pt has acute karen ngle infection left upper chest area since yesterday. Pt notices painful blisters. Pt braulio any fever, chill breast nodule1 pt has right jacob ast mass on screening mammo. Pt denies any breast complaints physical Pt needs annual physical pt has active lupus and amy and also sjogren disease Pt is on methotrexate and also Plaquenil and she sees dr. Ge. Pt has chronic joint pain which is better now since on above medication pt has anxiety and depression Pt takes cymbalta and doing ok Pt denies any suicidal or homicidal thought Pt denies any crying spells. Pt overall feels fine. Pt tripped and fell on right hip area two months ago and she noticed some bruising initially which resolved but she still notices pain intermittently right hip and lower back area. Pt denies any sciatica or any neuropathy symptoms back pain1 pt c/o acute ons et of dull ache right side of L spine muscle area for two weeks Pt denies any sharp pain Pt denies any urinary symptoms. Pt denies any nausea, vomiting ,diarrhea, fever, chill .Pt denies any injury Pt notices worsening pain with body movement Pt denies any urinary symptoms. Pt denies any night time pain Pt states that heating pad improves the pain. Pt denies any sciatica Pt denies any loss of bowel or bladder control or saddle area paresthesia flushing1 Pt has rather se rere hot flashes especially at night, frequently. Pt had lab done which showed menopausal changes. Pt states that she is rather uncomfortable due to hot flash. Pt tried veozah sample which made her nauseated and overall not well so she stopped it after one week flush Pt has rather se rere hot flashes especially at night, frequently. Pt had lab done which showed menopausal changes. Pt states that she is rather uncomfortable due to hot flash. Pt never picked up the veozah. UTi1 Pt c/o urinary b urning, frequency, urgency, low pelvic pressure since two weeks ago. Pt went to urgent care last week and she had negative UA with culture. Pt denies any fever, chill, flank pain, nausea, vomiting. anxiety1 Pt has chronic a nxiety and depression Pt takes cymbalta and doing ok Pt denies any suicidal or homicidal thought Pt denies any crying spells. HLP Pt has mild HLP Pt is working on diet pt has mild high glucose Pt denies any polyuria polydipsia vasomotor1 Pt has rather se rere hot flashes especially at night, frequently. Pt had lab done which showed menopausal changes. Pt states that she is rather uncomfortable due to hot flash sjogren1 Pt has sjogren P t sees rheumatology. Pt is on plaquenil and doing ok. Pt denies any joint pain hashimoto1 Pt has amy pt denies any dysphagia or neck pain HLP Pt has history o f HLP Pt is working on diet vasomotor1 Pt has been havi ng severe hot flash with sweat during the day and at night for the past several weeks Pt denies any cough, recent travel, sick contact. insomnia1 Pt did not try r emeron. Pt started to use cannabis which helped her insomnia weight loss1 Pt states that a ppetite improved with cannabis and she gained some weight tremor1 Pt denies any tr emor anymore. appetite pt states that s he started to use cannabis and her appetite improved and she gained some weight .Pt did not try remeron insomnia1 Pt has chronic i nsomnia Pt states that amitriptyline did not help and she does not feel well on it. weight loss1 Pt has unintenti onal weight loss Pt has poor appetite. Pt had negative endoscopy tremor1 Pt has mild bila teral hand resting and intentional tremor Pt is off seroquel for one month Pt has not noticed much improvement with the tremor. Pt denies any headache .Pt rarely drinks alcohol loss of appetite1 PIt has loss o f appetite recently. Pt even turned down ice cream Pt denies any early satiety, nausea, vomiting, change of bowel. pt lost some weight Pt states that her mood is ok. Pt is on Cymbalta. physical Pt needs annual physical. Pt has chronic anxiety and depression Pt takes cymbalta and doing well pt denies any suicidal or homicidal thought Pt denies any crying spells. Pt has IBS-D Pt had negative EGD and colonoscopy. Pt denies any early satiety, nausea GERd appetite loss or weight loss. Pt does have frequent abdominal bloating and non-bloody diarrhea. Pt has sjogren and she is on plaquenil and she sees rheumatology and doing ok. Pt has insomnia pt doing well with seroquel. Pt also c/o acute onset of mild bilateral intentional tremor for the past several weeks. Pt denies any resting tremor Pt denies any neck pain or radiculopathy or upper extremity weakness. Pt denies any sensory loss. Pt braulio any arm weakness. 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 Pt denies any other movement disorder. weight loss1 Pt has not lost weight since last month. pt has EGD and colonoscopy scheduled next month. Pt denies any abd pain. Pt states that her appetite is better now. Her diarrhea improved. Pt denies any blood in stool anxiety Pt has chronic a nxiety and depression and she takes cymbalta 60 mg and her mood is much better now. pt denies any suicidal or homicidal thought Pt denies any crying spells insomnia1 Pt has chronic i nsomnia Pt states that seroquel works well for insomnia and she sleeps much better. weight loss1 Pt has been losi ng weight unintentionally pt lost 20 pounds during last 6 months Pt c/o early satiety, bloating, poor appetite nonbloody diarrhea, vague abd pain Pt denies any ani GERD. Pt states that she feels something stuck in her throat area when she swallows. Pt has been having above feeling for 3-6 months. anxiety1 Pt has chronic a nxiety and depression Pt started cymbalta last month and she notices improvement of her mood. Pt denies any suicidal or homicidal thought Pt denies any crying spells. Pt denies any side effects with meds. sjogren1 Pt has sjogren a nd some paresthesia. Pt had negative NCS. pt is on plaquenil and doing ok. insomnia1 Pt has mild inso mnia. pt has difficulty falling asleep hashimoto1 Pt has amy disease. Pt had tsh done which is normal. Pt had benign thyroid ultrasound. Her tsh is ok. Pt is not anemic and her iron is ok. Pt denies any dysphagia or neck pain fatigue1 Pt has chronic f atigue. Pt denies any sob Pt denies any snoring. Pt denies any dizziness. Pt does wakes up frequently due to anxiety. anxiety1 Pt has chronic a nxiety and depression Pt denies any suicidal or homicidal thought. Pt has crying spells. Pt wants to try some counseling. Pt also has PTSD joint pain1 Pt has diffuse j oint pain and also dry eyes and dry mouth and diffuse paresthesia. Pt has mild headache. Pt has normal MRI of brain. Pt saw rheumatology and she was diagnosed with Sjogren's. Pt is on Plaquenil now. Pt states that she feels slightly better overall. pt states that joint pain improved as well. GI Pt c/o chronic s tomach issue for many years. Pt has poor appetite, bloating, intermittent constipation and diarrhea. Pt denies any blood in stool. Pt denies any early satiety. Pt had EGD and colonoscopy done about 5 years ago for above which were all normal per patient. Pt denies any nausea, vomiting Pt denies any postprandial pain. fatigue1 Pt c/o chronic f atigue Pt feels tired all the time Pt denies any sob ,Pt denies any snoring muscle Pt c/o acute ons et of numbness and tingling from feet to her head, rash around neck, scaly and dry eyelid with some red rash both eyelid, some eye lid swelling, cold feet, for 3-4 months. Pt states that both her leg feels weak. Pt does have low back pain for year without sciatica. Pt had L spine x ray which was benign Pt had some lab work done which did not show anything per patient. Pt denies any loss of bowel or bladder control or saddle area paresthesia. Pt denies any vision change or headache.. Pt c/o diffuse myalgia and joint pain as well .Pt denies any joint swelling or redness or warmth. Pt used to run but she has not been able to run due to leg weakness. pt feels tingling feeling all over her body physical Pt needs annual physical. Pt c/o acute onset of numbness and tingling from feet to her head, rash around neck, scaly and dry eyelid with some red rash both eyelid, some eye lid swelling, cold feet, for 3 months. Pt states that both her leg feels weak. Pt does have low back pain for year without sciatica. Pt had L spine x ray which was benign Pt had some lab work done which did not show anything per patient. Pt denies any loss of bowel or bladder control or saddle area paresthesia. Pt denies any vision change or headache.. Pt c/o diffuse myalgia and joint pain as well .Pt denies any joint swelling or redness or warmth Instructions Date Instruction Additional Infor latanyaion No Information Assessments Type Assessment Date assessment Amy's thyroiditis 025 assessment Hyperglycemia assessment Mixed hyperlipidemia assessment Osteopenia Mental Status Date Cognitive Assessment Orientation - [place] ed to time, place, person, situation.
--- OUTSIDE RECORDS SUMMARY | 2024-09-28 11:27 | XMS_ITS | Encounter Summary ---
Author Organization [facility] Address [address] [place] [address] Care Team Providers Care Museum Host/Hostess Name Role Phone Hesham Lorenzana MD Primary Care Provider Encounter Details Date Type Department Care Team ([facility] Contact Info) Description 09/22/2024 Results Follow-Up [facility] at [address] [address] Senia Barahona NP [address] [place] [address] [address] [place], [place] [id number] Urine culture Urine, clean voided Social History Tobacco Use Types Packs/Day Years Used Date Smoking Tobacco: Former Smokeless Tobacco: Never Alcohol Use Standard Drinks/Week Comments Not Currently 0 (1 standard drink = 0.6 oz pur e alcohol) Comments Unknown Sex and Gender Information Value Date Recorded Sex Assigned at Not on file 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
--- OUTSIDE RECORDS SUMMARY | 2024-09-28 11:27 | XMS_ITS | Clinical Summary ---
Author Organization [facility] Address [address] [place] [address] Phone Care Team Providers Care Retail Pharmacy Technician Name Role Phone Unavailable Primary Care Provider Unavailabl e Social History Tobacco Use Types Packs/Day Years Used Date Smoking Tobacco: Never Assessed Comments Unknown Sex and Gender Information Value Date Recorded Sex Assigned at Not on file Legal Sex Female 10:33 PM CDT Gender Identity Not on file Sexual Orientation Not on file Plan of Treatment Health Maintenance Due Date Last Done Comments Hepatitis C Virus (HCV) Screening 1975 TdaP Immunization 1974 Hepatitis B Immunization (1 of 3 - 19+ 3-dose series) 1993 Pap Smear 1995 Cervical Cancer Screening (CCS) 2004 HPV/Cotest 2004 Cologuard 2019 Colonoscopy 2019 Colorectal Cancer Screening 2019 Immunochemical Fecal Occult Blood 2019 SARS-COV-2 Immunization ( - 2023- season) 2023 03/30/2021, 08/22/2020, 08/01/2020 Pneumococcal Immunization (5 0+ years) (1 of 1 - PCV) 2024 Zoster Immunization (1 of 2) 2024 Influenza Immunization (#1) 2024 Respiratory Syncytial Virus (RSV) Immunization (Adult) (1 - 1-dose 75+ series) 2049 Discussion re Starting/Frequency of Mammograms Discontinued 12/21/2019 Mammogram Discontinued 12/21/2019 Human Papillomavirus (HPV) Immunization Aged Out No longer eligible based on patient's age to complete this topic Meningococcal Immunization (ACWY) Aged Out No longer eligible based on patient's age to complete this topic Rotavirus Immunization Aged Out No lo nger eligible based on patient's age to complete this topic Procedures Procedure Name Priority Date/Time Associated Diagnosis Comments SIMONE DIAG BILATERAL DIGITAL W CAD W BONNIE Routine 12/21/2019 2:51 PM CDT Other signs and symptoms in breast Nipple discharge from Last 3 Months or Most Recently Relevant to Health Maintenance Results * SIMONE DIAG BILATERAL DIGITAL W CAD W BONNIE (12/21/2019 2:51 PM CDT) Anatomical Region Laterality Modality breast Bilateral Mammography 12/21/2019 1:46 PM CDT Narrative 12/21/2019 3:38 PM CDT - SIMONE DIAG BILATERAL DIGITAL W CAD W BONNIE - SIMONE US BREAST LIMITED JULES BILATERAL DIGITAL DIAGNOSTIC MAMMOGRAM 3D/2D WITH CAD AND TARGETED LEFT ULTRASOUND WITH MEDIOLATERAL OBLIQUE CRANIOCAUDAL: 12/21/2019 The study was acquired using digital technology and interpreted from soft copy. Current study was also evaluated with ICAD version 7.2. CLINICAL: Diagnostic study. Clear nipple discharge of left breast during SBE in October twice. Patient states she believes the skin is dimpling approximately 4-6 oclock left breast areola. However, this is not visible to technologist. No complaints of the right breast. No personal history of cancer. No family history of breast cancer. COMPARISONS: Comparison is made to exams dated: 06/27/2015 and 05/21/2012 [facility]. BREAST TISSUE:There are scattered fibroglandular densities in both breasts. FINDINGS: No significant masses, calcifications, or other findings are seen in either breast on the mammogram or left targeted ultrasound. Mildly dilated ducts are seen in the subareolar left breast. Incidentally noted is a 4 mm cyst or lymph node at the 12 o'clock position, 1 cm from the nipple. IMPRESSION: OVERALL STUDY BIRADS: 2 BENIGN There is no mammographic or targeted sonographic evidence of malignancy. A 1 year screening mammogram is recommended. The patient has been or will be contacted. Electronically signed by: Kalyan Queen M.D. ll/:12/21/2019 15:11:25 Inspector Golf Ball: Rosa Edwards)(Sue), [facility] letter sent: Normal Exam Reading location: [facility] OVERALL STUDY BIRADS: 2 Benign Procedure Note Kalyan Queen MD - 12/21/2019 - SIMONE DIAG BILATERAL DIGITAL W CAD W BONNIE - SIMONE US BREAST LIMITED JULES BILATERAL DIGITAL DIAGNOSTIC MAMMOGRAM 3D/2D WITH CAD AND TARGETED LEFT ULTRASOUND WITH MEDIOLATERAL OBLIQUE CRANIOCAUDAL: 12/21/2019 The study was acquired using digital technology and interpreted from soft copy. Current study was also evaluated with BackTrackD version 7.2. CLINICAL: Diagnostic study. Clear nipple discharge of left breast during SBE in October twice. Patient states she believes the skin is dimpling approximately 4-6 oclock left breast areola. However, this is not visible to technologist. No complaints of the right breast. No personal history of cancer. No family history of breast cancer. COMPARISONS: Comparison is made to exams dated: 06/27/2015 and 05/21/2012 [facility]. BREAST TISSUE:There are scattered fibroglandular densities in both breasts. FINDINGS: No significant masses, calcifications, or other findings are seen in either breast on the mammogram or left targeted ultrasound. Mildly dilated ducts are seen in the subareolar left breast. Incidentally noted is a 4 mm cyst or lymph node at the 12 o'clock position, 1 cm from the nipple. IMPRESSION: OVERALL STUDY BIRADS: 2 BENIGN There is no mammographic or targeted sonographic evidence of malignancy. A 1 year screening mammogram is recommended. The patient has been or will be contacted. Electronically signed by: Kalyan Queen M.D. ll/:12/21/2019 15:11:25 Inspector Golf Ball: Rosa Horton(Lauren)(M), [facility] letter sent: Normal Exam Reading location: [facility] OVERALL STUDY BIRADS: 2 Benign us Vivian Brar APRN, ANDREY IMG MAMMO ORDERABLES Fin al Result from Last 3 Months or Most Recently Relevant to Health Maintenance Insurance [facility]
--- OUTSIDE RECORDS SUMMARY | 2024-09-28 11:27 | XMS_ITS | Clinical Summary ---
Author Organization [facility] [address] [place] [address] Address [address] [place] [address] Care Team Providers Care Campus Interviews Intern Name Role Phone Hesham Lorenzana MD Primary Care Provider [phone] Allergies No known active allergies Medications fluticasone (FLONASE) 50 mcg/actuation nasal sprayIndication s:Acute pansinusitis, recurrence not specified Administer 2 sprays into each nostril daily 16 g 5 06/12/19 19 Active Additional Information Patient not taking.Reported on 09/20/2024 hydrOXYchloroQU INE (PLAQUENIL) 200 mg tablet 01/24/20 22 Active QUEtiapine (SEROquel) 25 mg tablet 01/24/20 22 Active ascorbic acid (ascorbic acid with srikanth hips) 500 mg tablet,chewable take 1 tablet by oral route once Oral 1 Active cholecalciferol , vitamin D3, 1,000 unit tablet,chewable take 1 capsule by oral route once Oral 1 Active cyanocobalamin (Vitamin B-12) 500 mcg tablet take 1 tablet by oral route once Oral [address] (VOLTAREN) 75 mg EC tablet Take 1 tablet (75 mg total) by mouth every 12 hours 08/15/19 22 Active predniSONE (DELTASONE) 5 mg tablet 01/25/20 23 Active methotrexate 2.5 mg tablet 1 tablet (2.5 mg total) 06/19/19 24 Active lidocaine (LIDODERM) 5 % Place 1 patch on the skin daily 03/12/19 24 Active folic acid (FOLVITE) 1 mg tablet 1 tablet (1 mg total) 05/26/19 24 Active cyclobenzaprine (FLEXERIL) 5 mg tablet Take 1 tablet (5 mg total) by mouth 03/12/[address] (CYMBALTA) 60 mg capsule 1 capsule (60 mg total) 04/18/19 24 Active gabapentin (NEURONTIN) 100 mg capsule Take 1 capsule (100 mg total) by mouth every 8 hours 01/01/20 24 Active levothyroxine (SYNTHROID) 50 mcg tablet 08/31/19 25 Active meloxicam (MOBIC) 15 mg tablet 06/15/19 25 Active omeprazole (PriLOSEC) 20 mg capsule Take 1 capsule (20 mg total) by mouth daily 02/24/20 24 Active rosuvastatin (CRESTOR) 10 mg tablet 08/31/19 25 Active phenazopyridine (PYRIDIUM) 100 mg tabletIndicatio ns:Dysuria Take 1 tablet (100 mg total) by mouth 3 (three) times a day as needed for urinary pain 20 tablet 06/26/19 24 025 Discontinued nitrofurantoin monohydrate (MACROBID) 100 mg capsuleIndicati ons:Dysuria Take 1 capsule (100 mg total) by mouth 2 (two) times a day for 5 days 10 capsule 09/21/19 25 025 phenazopyridine (PYRIDIUM) 200 mg tabletIndicatio ns:Dysuria Take 1 tablet (200 mg total) by mouth 3 (three) times a day for 2 days 6 tablet 09/21/19 25 025 Active Problems Problem Noted Date Diagnosed Date Difficulty in swallowing 09/20/2019 Assessment & Plan (09/20/2019 9:20 AM CDT): Pepcid 40 mg at bedtime every night Good hydration LPR discussed and Handout provided Dental caries 09/20/2019 Assessment & Plan (09/20/2019 9:22 AM CDT): Have left mandibular third molar evaluated Epigastric abdominal tenderness 07/21/2019 Overview (07/21/2019): Added automatically from request for surgery [id number] Acute pansinusitis 06/11/2018 Assessment & Plan (06/11/2018 9:55 AM CDT): Complete antibiotics and other meds as prescribed Take OTC decongestants for congestion- Sudafed/Mucinex Motrin/Tylenol for pain/fever If you have high blood pressure or any kidney disease use Tylenol only. Take an Antihistamines like Zyrtec or Claritin or Randa daily at bedtime for the next 2-3 weeks. Can take Benadryl at bedtime for the next 3-4 days for immediate relief of runny nose and may help with sinus headache. Try saline nasal spray irrigations 2-4 times a day or try using Lise pot as directed daily then use your Flonase or other corticosteroid nasal spray every day to decrease the swelling and inflammation in your nasal cavities. 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 Cervicalgia 03/13/2015 Encounters Date Type Department Care Team Description 09/22/2024 Results Follow-Up [facility] at [address] [address] Senia Barahona, MELO Urine culture Urine, clean voided 09/20/2024 11:56 AM CDT - 09/20/2024 11:59 PM CDT Hospital Encounter [address] [address] Dysuria Discharge Disposition: Discharge to home or self care 09/20/2024 11:45 AM CDT Office Visit [facility] at [address] [address] Leonela Wilks, MELO Dysuria (Primary Dx) 08/03/2024 11:30 AM CDT Office Visit [facility] at [address] [address] Vanessa Sun PA Tick bite of right hip, initial encounter (Primary Dx) from Last 3 Months Surgical History Surgery Date Site/Laterality Comments COLONOSCOPY 03/10/2014 - 03/09/2015 [facility] UPPER GASTROINTESTINAL ENDOSCOPY HYSTERECTOMY APPENDECTOMY SPINAL FUSION C6-C7 Medical History Medical History Date Comments GERD (gastroesophageal reflux disease) Family History Medical History Relation Name Comments Cancer Father Family history of malignant neoplasm - (Added by TW Conv) Alcohol abuse Mother Family history of alcoholism - (Added by TW Conv) Arthritis Mother Family history of arthritis - (Added by TW Conv) Seizures Mother Family history of seizures - (Added by TW Conv) Relation Name Status Comments Father Mother Social History Tobacco Use Types Packs/Day Years Used Date Smoking Tobacco: Former Smokeless Tobacco: Never Alcohol Use Standard Drinks/Week Comments Not Currently 0 (1 standard drink = 0.6 oz pur e alcohol) Comments Unknown Sex and Gender Information Value Date Recorded Sex Assigned at Not on file 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 Gender Identity Not on file Sexual Orientation Not on file Obstetrics History Last Filed Vital Signs Vital Sign Reading Time Taken Comments Blood Pressure 108/72 09/20/2024 11:45 AM CDT Pulse 70 09/20/2024 11:45 AM CDT Temperature 36.3 C (97.4 F) 09/20/2024 11:45 AM CDT Respiratory Rate 16 09/20/2024 11:45 AM CDT Oxygen Saturation 98% 09/20/2024 11:45 AM CDT Inhaled Oxygen Concentration - - Weight 54.4 kg (120 lb) 09/20/2024 11:45 AM CDT Height 160 cm (5' 3) 09/20/2024 11:45 AM CDT Body Mass Index 21.26 09/20/2024 11:45 AM CDT Plan of Treatment Health Maintenance Due Date Last Done Comments Colon Cancer Screening-Colonoscopy 1974 Depression Screening 1974 Hepatitis C Screening 1974 DTaP/Tdap/Td Vaccine (1 - Tdap) 1985 Hepatitis B Screening 1992 Regular Well Visit/Exam 18-64 1992 Pneumococcal vaccine <65 (1 of 2 - PCV) 1993 Zoster Vaccine (1 of 2) 1993 Covid-19 Vaccine (3 - Pfizer risk series) 09/19/2020 08/22/2020, 08/01/2020 Breast Cancer Screening-Mammogram 12/20/2020 020, 12/21/2019 Influenza Vaccine (#1) 2024 Procedures Procedure Name Priority Date/Time Associated Diagnosis Comments POCT URINALYSIS DIPSTICK Routine 09/20/2024 11:56 AM CDT Dysuria URINE CULTURE Routine 09/20/2024 11:56 AM CDT Dysuria from Last 3 Months Results * (ABNORMAL) POCT urinalysis dipstick (09/20/2024 11:56 AM CDT) Color, Urine, POC Light Yellow Clarity, ur, POC Turbid(A) Clear Glucose, ur, POC Negative Negative Bilirubin, ur, POC Negative Negative Ketones, ur, POC Negative Negative Specific [place], POC 1.025 1.003 - 1.030 Blood, ur, POC Moderate(A) Negative pH, ur, POC 7.0 5.0 - 8.0 Protein, ur, POC Negative Negative Urobilinogen, urine, POC 0.2 0.2 - 1.0 mg/dL Nitrite, ur, POC Negative Negative Leukocytes, ur, POC Small(A) Negative Lot Number 0 Urine 09/20/2024 11:5 6 AM CDT Leonela Wilks NP POINT OF CARE TEST ORDERAB LES Final Result * (ABNORMAL) Urine culture Urine, clean voided (09/20/2024 11:56 AM CDT) Report Final Report: Greater than or equal to 100,000 colonies/mL of Escherichia coli Plus growth of clinically insignificant bacterial crystal. (.) Comment:Testing performed by : [facility], [address] [facility], [place]., [address] Organism ESCHERICHIA COLI [facility] Organism PLUS GROWTH OF CLINICALLY INSIGNIFICANT CRYSTAL. CERJOANA Urine, clean voided 09/20/2024 11:56 AM CDT 09/20/2024 6:05 PM CDT Narrative DMITRY GOTTI - 09/22/2024 8:42 AM CDT Testing performed by [facility] ([phone]) Organism Antibiotic Method Susceptibility Escherichia coli Ampicillin INTERPRETATION Susceptible Escherichia coli Cefazolin INTERPRETATION Susceptible Escherichia coli Nitrofurantoin INTERPRETATION Susceptible Escherichia coli Gentamicin INTERPRETATION Susceptible Escherichia coli Trimethoprim with Sulfamethoxazole IN TERPRETATION Susceptible Escherichia coli Meropenem INTERPRETATION Susceptible Escherichia coli Cefepime INTERPRETATION Susceptible Escherichia coli Ciprofloxacin INTERPRETATION Susceptible Escherichia coli Ceftazidime INTERPRETATION Susceptible Escherichia coli Ceftriaxone INTERPRETATION Susceptible Escherichia coli Piperacillin/Tazobactam INTERPRETATIO N Susceptible Escherichia coli Cephalexin INTERPRETATION Susceptible Escherichia coli Cefuroxime-axetil INTERPRETATION Susceptible Escherichia coli Cefdinir INTERPRETATION Susceptible us Leonela Wilks NP LAB MICROBIOLOGY - GENERAL ORDERABLES Final Result Performing Organization Address City/State/[facility] Co de Phone Number DMITRY [id number] [address] Department [place] [address] from Last 3 Months Insurance [facility] Advance Directives For more information, please contact: [phone] * Full Code (Latest Code Status on File) Date Activated Date Inactivated Comments 08/05/2019 7:25 AM 08/05/2019 12:49 PM * Full Code Date Activated Date Inactivated Comments 08/05/2019 7:24 AM 08/05/2019 7:25 AM Care Teams Campus Interviews Intern Relationship Specialty Start Date End Date Hesham Loren[place] [address] PCP - General Family Medicine 01/28/22
--- OUTSIDE RECORDS SUMMARY | 2024-09-28 11:27 | XMS_ITS | Referral Summary ---
Author Organization [address] Address [address] [place] [address] Care Team Providers Care Tooling Specialist Name Role Phone Hesham Lorenzana MD Primary Care Provider [phone] Encounters Date Type Department Care Team Description 09/22/2024 Results Follow-Up [facility] at [address] [address] Senia Barahona NP Urine culture Urine, clean voided 09/20/2024 11:56 AM CDT - 09/20/2024 11:59 PM CDT Hospital Encounter [place] [id number] Dysuria Discharge Disposition: Discharge to home or self care 09/20/2024 11:45 AM CDT Office Visit [facility] at [address] [address] Leonela Wilks NP Dysuria (Primary Dx) 08/03/2024 11:30 AM CDT Office Visit [facility] at [address] [phone] Vanessa Sun PA Tick bite of right hip, initial encounter (Primary Dx) from Last 3 Months Allergies No known active allergies Medications fluticasone [...] (07/21/2019): Added automatically from request for surgery [id number] Acute pansinusitis 06/11/2018 Assessment & Plan (06/11/2018 [...] disc of cervicothoracic region 03/17/2015 Cervicalgia 03/13/2015 Social History Tobacco Use Types Packs/Day Years Used Date Smoking Tobacco: Former Smokeless Tobacco: Never Alcohol Use Standard Drinks/Week Comments Not Currently 0 (1 standard drink = 0.6 oz pur e alcohol) Comments Unknown Sex and Gender Information Value Date Recorded Sex Assigned at Not on file 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 (.) Comment:Testing performed by : [facility], [address] [place]., [address] Organism ESCHERICHIA COLI DMITRY GOTTI Organism PLUS GROWTH OF CLINICALLY INSIGNIFICANT CHIVO. DMITRY GOTTI Urine, clean voided 09/20/2024 11:56 AM CDT 09/20/2024 6:05 PM CDT Narrative DMITRY GOTTI - 09/22/2024 8:42 AM CDT Testing performed by [facility] ([phone]) Organism Antibiotic Method Susceptibility Escherichia coli Ampicillin [...] INTERPRETATION Susceptible Escherichia coli Cefdinir INTERPRETATION Susceptible Leonela Wilks NP LAB MICROBIOLOGY - GENERAL ORDERABLES Final Result DMITRY [id number] Department [place] [address] from Last [address] [place] [address] [place] [address] [facility] Advance Directives For more information, please contact: [phone] * Full Code (Latest Code Status on File) Date Activated Date Inactivated Comments 08/05/2019 7:25 AM 08/05/2019 12:49 PM * Full Code Date Activated Date Inactivated Comments 08/05/2019 7:24 AM 08/05/2019 7:25 AM Care Teams Tooling Specialist Relationship Specialty Start Date End Date Hesham Lorenzana MD [address] [facility] [place] [address] PCP - General Family Medicine 01/28/22
== END 2024-09-28 11:23 | disposition home or self-care (01) ==
PROVIDERS: PCP Emergency Medicine; Visit Provider Nurse Practitioner Family
DX: R19.7 Diarrhea, unspecified (principal)
CPT/HCPCS: 74018

== ENCOUNTER 2024-12-22 10:09 | Outpatient (CLI) | payer OTHER, SELFPAY ==
--- OUTSIDE RECORDS SUMMARY | 2024-11-24 08:30 | XMS_ITS ---
Author Organization [facility] elke Address [address] [facility] [address] [place] [address] Care Team Providers Care Stenographer Print Shop Name Role Phone Salomón MEJIA, Hesham Primary Care Provider Becky Ball [phone] REASON FOR VISIT Prednisone, New Symptoms, Disability Encounters Encounter Location Date Provider Diagnosis [facility] [address] [facility] [address] [place] [address] 11/24/2024 Becky Zamudio Plan Of Treatment No Information Progress Notes * Linnea PINEDAaDOB:1975 (49 yo F)Acc No.[id number]:11/24/2024 Progress Notes Patient: Nikki BHAKTA Appointment Provider: Parth ZAMUDIO MD :1975 A ge:49 Y S ex:Female Date:11/24/2024 Address:[address] [place], [place] [phone] Pcp:Hesham Lorenzana MD Subjective: * Chief Complaints: * 1 . Prednisone, New Symptoms, Disability. * Medical History: Objective: * Vitals: Assessment: Plan: * Treatment: * Billing Information: * Visit Code: * Procedure Codes: * Electronic signature of Becky Zamudio MD on 12/22/2024 at 11:47 AM CDT Sign off status: Pending * Appointment Provider: Parth ZAMUDIO MD Date: 0 11/24/2024 Generated for Printi ng/Faxing/eTransmitting on: 1 11:47 AM CDT
--- OUTSIDE RECORDS SUMMARY | 2024-12-13 03:30 | XMS_ITS ---
Author Organization [facility] el[facility] Address [address] [facility] [address] [place] [address] Care Team Providers Care Hydrometallurgical Engineer Name Role Phone Salomón MEJIA, Hesham Primary Care Provider Becky Ball Unavailable [phone] REASON FOR VISIT yd/6 month follow up/flc Encounters Encounter Location Date Provider Diagnosis [facility] [address] [facility] [address] [place] [address] 12/13/2024 Becky Zamudio Plan Of Treatment No Information Progress Notes * Linnea PINEDANemesioB:1975 (49 yo F)Acc No.[id number]:12/13/2024 Progress Notes Patient: Nikki BHAKTA Appointment Provider: Parth ZAMUDIO MD :1975 A ge:49 Y S ex:Female Date:12/13/2024 Address:[address] [place], [place] [phone] Pcp:Hesham Lorenzana MD Subjective: * Chief Complaints: * 1 . Yd/6 month follow up/flc. * Medical History: Objective: * Vitals: Assessment: Plan: * Treatment: * Billing Information: * Visit Code: * Procedure Codes: * Electronic signature of Becky Zamudio MD on 12/22/2024 at 11:47 AM CDT Sign off status: Pending * Appointment Provider: Parth ZAMUDIO MD Date: Generated for Printi ng/Faxing/eTransmitting on: 11:47 AM CDT
--- NOTE | ~2024-12-22 | MMUS_ITS ---
EXAMINATION: US breast RT limited, MM diagnostic ulises BI w monet HISTORY: 6 month follow-up right breast. Left annual. TECHNIQUE: Additional 3-D tomosynthesis images of both breasts were performed and synthetic 2-D images were generated. CAD analysis was submitted and interpreted. High resolution breast ultrasound was performed. COMPARISON: Mammograms from 06/22/2024, 01/19/2024, 12/23/2023 and 12/11/2021 BREAST PARENCHYMAL COMPOSITION: The breasts are heterogeneously dense, which may obscure small masses. FINDINGS: MAMMOGRAPHIC FINDINGS: No suspicious masses, calcifications or architectural distortion. ULTRASOUND: There is a 3 x 3 x 2 mm hypoechoic cyst versus solid mass in the right breast at 10:00 position 1 cm from the nipple. The finding is wider than tall. Margins are well-circumscribed. No internal color flow. No posterior acoustic shadowing. The finding is probably benign. There is a 4 x 5 x 2 mm hypoechoic cyst versus solid mass in the right breast at 10:00 position 4 cm from the nipple. The finding is wider than tall. Margins are well-circumscribed. No internal color flow. No posterior acoustic shadowing. The finding is probably benign. IMPRESSION: 1. Probably benign findings in the right breast. A diagnostic right breast mammogram and a diagnostic right breast ultrasound is recommended. 2. No mammographic evidence malignancy in the left breast BI-RADS 3-Probably benign-Short interval follow-up suggested. Reviewed, dictated and finalized at location Q. IMPRESSION: 1. Probably benign findings in the right breast. A diagnostic right breast mamm ogram and a diagnostic right breast ultrasound is recommended. 2. No mammographic evidence malignancy in the left breast BI-RADS 3-Probably benign-Short interval follow-up suggested.
--- OUTSIDE RECORDS SUMMARY | 2024-12-22 11:47 | XMS_ITS | Patient Health Record ---
Author Organization [facility] Address [address] [place] [address] Care Team Providers Care Sign Fabricator Name Role Phone Salomón MEJIA, Hesham Primary Care Provider Becky Ball Unavailable [phone] Allergies No Known Allergies Results Component Value Reference Range Notes eGFR Reviewed date:06/14/2024 09:30:46 PM Interpretation: Performing Lab:[facility] [place] [facility] [place] [address] [facility] [address] Notes/Report: eGFR >90 >=60 mL/min/1.73 m2 Interpretive Data Reference Interval Normal >/= 90 mL/min/1.73m2 Mildly decreased* 60 - 89 mL/min/1.73m2 Mildly to moderately decreased 45 - 59 mL/min/1.73m2 Moderately to severely decreased 30 - 44 mL/min/1.73m2 Severely decreased 15 - 29 mL/min/1.73m2 Kidney Failure < 15 mL/min/1.73m2 *Relative to young adult level Estimated glomerular filtration rate is determined by the 2020 CKD-EPI equation recommended by the National Kidney Foundation (A Unifying Approach to GFR Estimation: Recommendations of the NKF-ASK Task Force on Reassessing the Inclusion of Race in Diagnosing Kidney Disease, JASN 2020). The CKD-EPI equation should not be used for patients with unstable renal function and has not been validated in children and those over 70. Current interpretive data was last reviewed 2021. Differential Automated Reviewed date:06/14/2024 09:30:46 PM Interpretation: Performing Lab:[facility] [place] [facility] [place] [address] Notes/Report: Neut Abs 3.69 1.50-6.50 K/cumm ImmGran Abs 0.02 0.00-0.10 K/cumm Lymphocyte Abs 1.75 0.80-3.30 K/cumm Josephine Abs 0.42 0.20-0.80 K/cumm Eos Abs 0.08 0.00-0.50 K/cumm Baso Abs 0.05 0.00-0.10 K/cumm Neut Pct 61.5 Interpretive Data Percent cell count reference ranges are not reported, since discordance with absolute values may lead to misinterpretation of CBC data. Current Interpretive Data was last revised on 2017. ImmGran Pct 0.3 Interpretive Data Percent cell count reference ranges are not reported, since discordance with absolute values may lead to misinterpretation of CBC data. Current Interpretive Data was last revised on 2017. Lymph Pct 29.1 Interpretive Data Percent cell count reference ranges are not reported, since discordance with absolute values may lead to misinterpretation of CBC data. Current Interpretive Data was last revised on 2017. Josephine Pct 7.0 Interpretive Data Percent cell count reference ranges are not reported, since discordance with absolute values may lead to misinterpretation of CBC data. Current Interpretive Data was last revised on 2017. Eos Pct 1.3 Interpretive Data Percent cell count reference ranges are not reported, since discordance with absolute values may lead to misinterpretation of CBC data. Current Interpretive Data was last revised on 2017. Baso Pct 0.8 Interpretive Data Percent cell count reference ranges are not reported, since discordance with absolute values may lead to misinterpretation of CBC data. Current Interpretive Data was last revised on 2017. Vit D 25OH Reviewed date:06/14/2024 09:30:47 PM Interpretation: Performing Lab:[facility] , [address] [facility] [place] [address] Notes/Report: 25 Hydroxy Vitamin D 27 30-80 ng/mL Sed Rate Reviewed date:06/14/2024 09:30:47 PM Interpretation: Performing Lab:[facility] , [address] [facility]. [place] [address] Notes/Report: ESR 10 1-30 mm/hr Rheumatoid Factor Reviewed date:06/14/2024 09:30:47 PM Interpretation: Performing Lab:[facility] , [address] [place] [address]. [place] [address] Notes/Report: RF, Toni 11 <=15 IUnits/mL Creatine Kinase Reviewed date:06/14/2024 09:30:47 PM Interpretation: Performing Lab:[facility] , [address] [place] [address]. [place] [address] Notes/Report: Total CK 46 30-200 Units/L Comprehensive metabolic pane l (CMP) Reviewed date:06/14/2024 09:30:47 PM Interpretation: Performing Lab:[facility] , [address] [place] [address]. [place] [address] Notes/Report: Sodium 140 135-145 mmol/L Plasma Potassium 3.7 3.3-4.9 mmol/L Chloride 102 97-110 mmol/L Total CO2 25 22-32 mmol/L Anion Gap 13 2-15 mmol/L BUN 10 6-25 mg/dL Creatinine 0.65 0.60-1.10 mg/dL Glucose 88 70-199 mg/dL Interpretive Data Fasting glucose >/= 126 mg/dl is diagnostic for diabetes. Fasting is defined as no caloric intake for at least 8 hours. Fasting glucose between 100 mg/dl to 125 mg/dl is diagnostic of prediabetes. In a patient with classic symptoms of hyperglycemia or hyperglycemic crisis, a random glucose >/= 200 mg/dl is diagnostic for diabetes. In the absence of unequivocal hyperglycemia, results should be confirmed by repeat testing. The classification and Diagnosis of Diabetes Diabetes Care 2021; 46: S19-S40. Current interpretive data was last revised 2022. Total Calcium 9.3 8.5-10.3 mg/dL Total Bilirubin 0.2 0.1-1.2 mg/dL Plasma Total Protein 6.7 6.5-8.5 g/dL Albumin 4.2 3.5-5.0 g/dL Alkaline Phosphatase 81 40-130 Units/L ALT 18 7-45 Units/L AST 20 10-45 Units/L Complement C4 Reviewed date:06/14/2024 09:30:47 PM Interpretation: Performing Lab:[facility] , [address] [place] [address]. [place] [address] Notes/Report: Complement, C4 20 10-40 mg/dL Complement C3 Reviewed date:06/14/2024 09:30:47 PM Interpretation: Performing Lab:[facility] , [address] [place] [address]. [facility] [address] Notes/Report: Complement, C3 112 90-180 mg/dL CBC w auto diff Reviewed date:06/14/2024 09:30:47 PM Interpretation: Performing Lab:[facility] , [address] [place] [address] Notes/Report: WBC 6.01 3.80-9.90 K/cumm Hgb 13.8 11.9-15.5 g/dL Hct 40.1 35.6-45.5 % Platelet Ct 243 150-400 K/cumm MPV 10.9 9.1-12.3 fL RBC 4.59 3.90-5.20 M/cumm MCV 87.4 81.3-96.4 fL MCH 30.1 27.1-33.3 pg MCHC 34.4 32.3-35.7 g/dL RDW CV 11.5 11.1-14.9 % RDW SD 36.9 35.7-48.1 fL NRBC Abs Auto 0.00 0.00-0.01 K/cumm C Reactive Protein Reviewed date:06/14/2024 09:30:46 PM Interpretation: Performing Lab:[facility] , [address] [place] [address]. [facility] [address] Notes/Report: C-Reactive Protein <3.0 <=10.0 mg/L Anti-CCP (Cyclic Citrullinat ed Peptide Ab) Reviewed date:06/15/2024 04:00:19 PM Interpretation: Performing Lab:[facility] , [address] [place] [address]. [facility] [address] Notes/Report: CCP Ab <0.5 <=2.9 units/mL Interpretive data Negative: <3 units/mL Positive: > or equal to 3 units/mL Current interpretive data was last revised on 2016. ALDO reflex titer pattern CONNIE + dsDNA Reviewed date:06/15/2024 04:00:09 PM Interpretation:Lab Result Generalized Performing Lab:[facility] , [address] [place], [place] [address]. [facility] [address] Notes/Report: ALDO, Qual Negative Interpretive Data Normal range for ALDO Qualitative Antibody = Negative. 1. ALDO is performed using indirect immunofluorescence against HEp-2 cells 2. ALDO titers are performed on all positive qualitative results. 3. A significantly positive ALDO result is defined as a positive nuclear fluorescence at a titer of 1:80 or greater. 4. 15% of normal people above age 65 have significantly positive ALDO results. 5% or less of normal people age 65 or under have significantly positive ALDO results. Current interpretive data was last revised on 2019. Testing performed by: [facility], [address] [facility], [place]., [address] Reason For Referral No Information Medications Medication SIG (Take, Route, Frequency, Duration) Notes Start Date End Date Status Vitamin D3 25 MCG (1000 UT) take 1 capsule by oral route once Oral 1 Active Cymbalta 60 MG 1 capsule Orally Onc e a day; Duration: 30 day(s) Active Vitamin B-12 500 mcg take 1 tablet by or al route once Oral 1 Active Vitamin C 500 mg take 1 tablet by ora l route once Oral 1 Active Problems Problem Type SNOMED Code ICD Code Onset Dates Problem Status W/U Status Risk Notes Problem Information temporarily unavailable Connective tissue disease (M35.9) Active confirmed Problem Information temporarily unavailable Vitamin D deficiency (E55.9) Active confirmed Problem Information temporarily unavailable Sjogren's syndrome with keratoconjunctivitis sicca (M35.01) Active confirmed Vital Signs Heart Rate 81 /min 06/14/2024 Temperature 99.4 degrees Fahrenheit 06/14/2024 Oximetry 97 % 06/14/2024 Blood pressure diastolic 70 mm Hg 06/14/2024 Height-cm 160.02 cm 06/14/2024 Weight-kg 55.34 kg 06/14/2024 Height 63 in 06/14/2024 Blood pressure systolic 112 mm Hg 06/14/2024 Weight 122.0 lbs 06/14/2024 BMI 21.61 kg/m2 06/14/2024 Encounters Encounter Location Date Provider Diagnosis [facility] [address] [place] [address] 01/01/2024 Becky Ge Sjogren's syndrome w ith keratoconjunctivitis sicca M35.01 ; High risk medication use Z79.899 ; Vitamin D deficiency E55.9 ; Connective tissue disease M35.9 ; ALDO positive R76.8 ; Intermittent diarrhea R19.7 and Herpes zoster without complication B02.9 [facility] [address] [place] [address] 06/14/2024 [facility] Sjogren's syndrome w ith keratoconjunctivitis sicca M35.01 ; High risk medication use Z79.899 ; Vitamin D deficiency E55.9 ; Connective tissue disease M35.9 ; ALDO positive R76.8 ; Intermittent diarrhea R19.7 and Herpes zoster without complication B02.9 [facility] [address] [place] [address] 12/29/2023 [facility] [address] [place] [address] 01/13/2024 [facility] [address] [place] [address] 02/18/2024 [facility] [address] [place] [address] 02/18/2024 [facility] [address] [place] [address] 04/12/2024 [facility] [address] [place] [address] 05/25/2024 [facility] [address] [place] [address] 11/05/2024 [facility] [address] [place] [address] 11/05/2024 [facility] [address] [place] [address] 11/21/2024 [facility] [address] [place] [address] 11/23/2024 [facility] [address] [place] [address] 11/23/2024 [facility] [address] [place] [address] 11/23/2024 Becky Ge Assessments Encounter Date Diagnosis (ICD Code) Assessment Notes Treatment Notes Treatment Clinical Notes Section Notes 01/01/2024 High risk medication use (ICD-10 - Z79.899) stop plaquenil due to diarrhea, start gabapentin 100mg tid, return in 3 months 01/01/2024 Sjogren's syndrome w ith keratoconjunctivitis sicca (ICD-10 - M35.01) stop plaquenil due to diarrhea, start gabapentin 100mg tid, return in 3 months 06/14/2024 Sjogren's syndrome w ith keratoconjunctivitis sicca (ICD-10 - M35.01) off DMAR Ds, start mobic 15mg/day prn, labs today, return in 6 months 06/14/2024 High risk medication use (ICD-10 - Z79.899) off DMARD s, start mobic 15mg/day prn, labs today, return in 6 months 01/01/2024 Vitamin D deficiency (ICD-10 - E55.9) stop plaquenil due to diarrhea, start gabapentin 100mg tid, return in 3 months 01/01/2024 Connective tissue disease (ICD-10 - M35.9) stop plaquenil due to diarrhea, start gabapentin 100mg tid, return in 3 months 06/14/2024 Vitamin D deficiency (ICD-10 - E55.9) off DMARDs, start mobic 15mg/day prn, labs today, return in 6 months 06/14/2024 Connective tissue disease (ICD-10 - M35.9) off DMARDs, start mobic 15mg/day prn, labs today, return in 6 months 01/01/2024 ALDO positive (ICD-10 - R76.8) stop plaquenil due to diarrhea, start gabapentin 100mg tid, return in 3 months 01/01/2024 Intermittent diarrhe a (ICD-10 - R19.7) stop plaquenil due to diarrhea, start gabapentin 100mg tid, return in 3 months 06/14/2024 ALDO positive (ICD-10 - R76.8) off DMARDs, start mobic 15mg/day prn, labs today, return in 6 months 06/14/2024 Intermittent diarrhe a (ICD-10 - R19.7) off DMARDs, start mobic 15mg/day prn, labs today, return in 6 months 01/01/2024 Herpes zoster withou t complication (ICD-10 - B02.9) stop plaquenil due to diarrhea, start gabapentin 100mg tid, return in 3 months 06/14/2024 Herpes zoster withou t complication (ICD-10 - B02.9) off DMARDs, start mobic 15mg/day prn, labs today, return in 6 months Plan Of Treatment Pending Test Test Name Order Date Creatine Kinase,Total,Serum 04/17/2023 Complement C4, Serum 04/17/2023 CBC With Differential/Platelet CBC With Differential/Platelet Sedimentation Rate-Westergren 04/17/2023 Complement C3, Serum 04/17/2023 Rheumatoid Arthritis Factor 04/17/2023 C-Reactive Protein, Quant 04/17/2023 Sjogren's Ab, Anti-SS-A/-SS-B 04/17/2023 Antiscleroderma-70 Antibodies 04/17/2023 Anti-dsDNA Antibodies 04/17/2023 CCP IgG Antibodies 04/17/2023 ALDO w/Reflex 04/17/2023 Chem-Comprehensive 04/17/2023 Chem-Comprehensive 06/09/2023 Quiñonez Ab 04/17/2023 LATHE HAND Antibodies 04/17/2023 Insurance Providers Payer Name Payer Address Payer Phone Subscriber Number Group Number Insured Name Patient Relationship to Insured Coverage Start Date Coverage End Date [facility] [address] [place] [address] [id number] Nikki Pineda Self - patient is the insured [facility] [address] [address] [place] [address] [phone] [id number] Nikki Pineda Self - patient is the insured [employer] [address] [place] [address] [id number] Nikki Pineda Self - patient is the insured [employer] [address] [place] [address] [id number] Nikki Pineda Self - patient is the insured Medical (General) History Medical History History ICD Code Bladder prolapse, female, acquired; COVID-19; GERD (gastroesophageal reflux disease); IBS (irritable bowel syndrome); Thyroid disorder; shingles, covid-19 Surgical History Surgery Date(Month/Year) Spinal fusion; 2021-09-07 Appendectomy; 2021-09-07 Hysterectomy; 2021-09-07 Bladder Mesh; 2021-09-13
--- OUTSIDE RECORDS SUMMARY | 2024-12-22 11:47 | XMS_ITS | Clinical Summary ---
Author Organization [facility] Address [address] [place] [address] Phone Care Team Providers Care Locomotive Pipe Fitter Name Role Phone Unavailable Primary Care Provider [...] Screening 2019 Immunochemical Fecal Occult Blood 2019 Pneumococcal Immunization (5 0+ years) (1 of 1 - PCV) 2024 Zoster Immunization (1 of 2) 2024 Influenza Immunization (#1) 2024 SARS-COV-2 Immunization ( - 2024- season) 2024 03/30/2021, 08/22/2020, 08/01/2020 Respiratory Syncytial Virus (RSV) Immunization (Adult) (1 [...] made to exams dated: 06/27/2015 and 05/21/[address] [facility]. BREAST TISSUE:There are scattered fibroglandular densities in [...] signed by: Kalyan Queen M.D. ll/:12/21/2019 15:11:25 Metal Roaster: Rosa Edwards)(Sue), [facility] letter sent: Normal Exam Reading location: [place] [...] copy. Current study was also evaluated with [employer] version 7.2. CLINICAL: Diagnostic study. Clear nipple [...] made to exams dated: 06/27/2015 and 05/21/[address] [facility]. BREAST TISSUE:There are scattered fibroglandular densities in [...] signed by: Kalyan Queen M.D. ll/:12/21/2019 15:11:25 Metal Roaster: Rosa Horton(Lauren)(M), [facility] letter sent: Normal Exam Reading location: [place] OVERALL STUDY BIRADS: 2 Benign us Vivian Brar APRN, ANDREY IMG MAMMO ORDERABLES Fin al Result from Last 3 Months or Most Recently Relevant to Health Maintenance Insurance [facility]
--- OUTSIDE RECORDS SUMMARY | 2024-12-22 11:47 | XMS_ITS | Clinical Summary ---
Author Organization [facility] [address] [place] [address] Address [address] [place] [address] Care Team Providers Care Fishing Vessel Captain Name Role Phone Hesham Lorenzana MD Primary Care Provider Allergies No known active allergies Medications fluticasone (FLONASE) 50 mcg/actuation nasal sprayIndication s:Acute pansinusitis, recurrence not specified Administer 2 sprays into each nostril daily 16 g 5 9 Active Additional Information Patient not taking.Reported on 10/03/2024 hydrOXYchloroQU INE (PLAQUENIL) 200 mg tablet 2 Active QUEtiapine (SEROquel) 25 mg tablet 2 Active ascorbic acid (ascorbic acid with srikanth [...] mg total) by mouth every 12 hours 2 Active predniSONE (DELTASONE) 5 mg tablet 3 Active methotrexate 2.5 mg tablet 1 tablet (2.5 mg total) 4 Active lidocaine (LIDODERM) 5 % Place 1 patch on the skin daily 4 Active folic acid (FOLVITE) 1 mg tablet 1 tablet (1 mg total) 4 Active cyclobenzaprine (FLEXERIL) 5 mg tablet Take 1 tablet (5 mg total) by mouth [address] (CYMBALTA) 60 mg capsule 1 capsule (60 mg total) 4 Active gabapentin (NEURONTIN) 100 mg capsule Take 1 capsule (100 mg total) by mouth every 8 hours 4 Active levothyroxine (SYNTHROID) 50 mcg tablet 5 Active meloxicam (MOBIC) 15 mg tablet 5 Active omeprazole (PriLOSEC) 20 mg capsule Take 1 capsule (20 mg total) by mouth daily 4 Active rosuvastatin (CRESTOR) 10 mg tablet 5 Active Active Problems Problem Noted Date Diagnosed Date Difficulty in swallowing 09/20/2019 Assessment & Plan (09/20/2019 9:20 AM CDT): Pepcid 40 mg at bedtime every night Good hydration LPR discussed and Handout provided Dental caries 09/20/2019 Assessment & Plan (09/20/2019 9:22 AM CDT): Have left mandibular third molar evaluated Epigastric abdominal tenderness 07/21/2019 Overview (07/21/2019): Added automatically from request for surgery [id number] Acute pansinusitis 06/11/2018 Assessment & Plan (06/11/2018 [...] Encounters Date Type Department Care Team Description 10/04/2024 Results Follow-Up [facility] at [address] [place] [address] Irene Gentile, MELO Urine culture Urine, clean voided 10/03/2024 7:16 PM CDT - 10/03/2024 11:59 PM CDT [place] [address] Recurrent UTI Discharge Disposition: Discharge to home or self care 10/03/2024 3:15 PM CDT Office Visit [facility] at [address] [place] [address] Irene Gentile NP Recurrent UTI (Primary Dx) 09/22/2024 Results Follow-Up [facility] Care at [address] [address] Senia Barahona NP Urine culture Urine, clean voided from Last 3 Months Surgical History Surgery Date Site/Laterality Comments COLONOSCOPY 03/10/2014 - 03/09/2015 [facility] UPPER GASTROINTESTINAL ENDOSCOPY HYSTERECTOMY APPENDECTOMY SPINAL FUSION [...] = 0.6 oz pur e alcohol) Comments No Sex and Gender Information Value Date Recorded Sex Assigned at Not on file Legal Sex Female 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 Gender Identity Not on file Sexual Orientation Not on file Obstetrics History Last Filed Vital Signs Vital Sign Reading Time Taken Comments Blood Pressure 94/58 10/03/2024 2:53 PM CDT Pulse 95 10/03/2024 2:53 PM CDT Temperature 36.5 C (97.7 F) 10/03/2024 2:53 PM CDT Respiratory Rate 17 10/03/2024 2:53 PM CDT Oxygen Saturation 98% 10/03/2024 2:53 PM CDT Inhaled Oxygen Concentration - - Weight 55.3 kg (122 lb) 10/03/2024 2:53 PM CDT Height 160 cm (5' 3) 10/03/2024 2:53 PM CDT Body Mass Index 21.61 10/03/2024 2:53 PM CDT Plan of Treatment Health Maintenance Due [...] Associated Diagnosis Comments POCT URINALYSIS DIPSTICK Routine 10/03/2024 3:01 PM CDT Recurrent UTI URINE CULTURE Routine 10/03/2024 2:53 PM CDT Recurrent UTI from Last 3 Months Results * (ABNORMAL) POCT urinalysis dipstick (10/03/2024 3:01 PM CDT) Color, Urine, POC Reynolds Clarity, ur, POC Clear Clear Glucose, ur, POC 100.(A) Negative Bilirubin, ur, POC Negative Negative Ketones, ur, POC Negative Negative Specific [place], POC 1.005 1.003 - 1.030 Blood, ur, POC Small(A) Negative pH, ur, POC 6.0 5.0 - 8.0 Protein, ur, POC Negative Negative Urobilinogen, urine, POC 0.2 0.2 - 1.0 mg/dL Nitrite, ur, POC Positive(A) Negative Leukocytes, ur, POC Small(A) Negative Lot Number [id number] Urine 10/03/2024 3:01 PM CDT Irene Gentile NP POINT OF CARE TEST ORDERABL ES Final Result * Urine culture Urine, clean voided (10/03/2024 2:53 PM CDT) Report Final Report: Less than 100,000 colonies/mL (clinically insignificant growth based on current clinical standards) Comment:Testing performed by : [facility], [address] [place] [address] Organism (CLINICALLY INSIGNIFICANT GROWTH DMITRY Urine, clean voided 10/03/2024 2:53 PM CDT 10/03/2024 10:59 PM CDT Narrative DMITRY - 10/05/2024 7:24 AM CDT Testing performed by [facility] ([phone]) Irene Gentile NP LAB MICROBIOLOGY - GENERAL ORDERABLES Final Result [facility] [address] Department [place] [address] from Last 3 Months Insurance [facility] Advance Directives For more information, please contact: [phone] * Full Code (Latest Code Status on File) Date Activated Date Inactivated Comments 08/05/2019 7:25 AM 08/05/2019 12:49 PM * Full Code Date Activated Date Inactivated Comments 08/05/2019 7:24 AM 08/05/2019 7:25 AM Care Teams Fishing Vessel Captain Relationship Specialty Start Date End Date Hesham Lorenzana MD [address] [place] [address] PCP - General Family Medicine 01/28/22
--- OUTSIDE RECORDS SUMMARY | 2024-12-22 11:47 | XMS_ITS | Encounter Summary ---
Author Organization [facility] Address [address] [place] [address] Care Team Providers Care Procurement Buyer Name Role Phone Unavailable Primary Care Provider Unavailabl e Encounter Details Date Type Department Care Team (Late st Contact Info) Description 08/15/2018 Abstract SFL CONVERSION [address] [place] [address] , Generic Conversion, Social History Tobacco Use Types Packs/Day Years Used Date Smoking Tobacco: Never Assessed Comments Unknown Sex and Gender Information Value Date Recorded Sex Assigned at Not on file Legal Sex Female 7:22 PM CDT Gender Identity Not on file Sexual Orientation Not on file documented as of this encounter Plan of Treatment Not on file documented as of this encounter Visit Diagnoses Not on filedocumented in this encounter
--- OUTSIDE RECORDS SUMMARY | 2024-12-22 11:47 | XMS_ITS | Clinical Summary ---
Author Organization [facility] Address [address] [place] [address] Care Team Providers Care Rod Puller And Coiler Name Role Phone Unavailable Primary Care Provider Unavailabl e Social History Tobacco Use Types Packs/Day Years Used Date Smoking Tobacco: Never Assessed Comments Unknown Sex and Gender Information Value Date Recorded Sex Assigned at Not on file Legal Sex Female 7:22 PM CDT Gender Identity Not on file Sexual Orientation Not on file Plan of Treatment Health Maintenance Due Date Last Done Comments Cervical Cancer Screening Pa p Smear (Age 30 to 64) Every 3 Years 1974 Colorectal Cancer Screening Colonoscopy (10 Years) 1974 Annual Physical 1977 Hepatitis C 1992 DTaP, Tdap and Td Vaccines ( 1 - Tdap) 1993 Hepatitis B Vaccines (1 of 3 - 19+ 3-dose series) 1993 Cervical Cancer Screening Pa p with HPV Testing (Age 30 to 64) Every 5 Years 2004 Cervical Cancer Screening with HPV 2004 Mammogram Screening 2014 Pneumococcal Vaccine: 50+ Ye ars (1 of 1 - PCV) 2024 Zoster Vaccines (1 of 2) 2024 COVID-19 Vaccine (1 - 2023-2 5 season) 2024 Influenza Adult (#1) 2024 Meningococcal B Vaccine Aged Out No l onger eligible based on patient's age to complete this topic Meningococcal Vaccine Aged Out No huma dre eligible based on patient's age to complete this topic RSV Immunizations Under 20 Months Aged Out No longer eligible based on patient's age to complete this topic
== END 2024-12-22 10:10 | disposition home or self-care (01) ==
LOC: ANHFOHIMG 10:11
PROVIDERS: PCP Family Medicine; Visit Provider Emergency Medicine
DX: N63.11 Unspecified lump in the right breast, upper outer quadrant (principal)
CPT/HCPCS: 76642; 77062; 77066; G0279